=== PATIENT | female | born 1955 | race Caucasian/White ===

== ENCOUNTER 2016-06-05 12:58 | Emergency (ER) | payer OTHER ==
[~2016-06-05] VITALS: Ht 167.6 cm; Wt 92.1 kg
[2016-06-05 12:58] VITALS: Ht 167.6 cm; Wt 92.1 kg
[~2016-06-05 12:58] MED LIST: LEVO100T81; MUPI22OI EA NOSTRIL; PROP80CA; TRIA1TAB10
[2016-06-05] MEDS ORDERED: MORPHINE SULFATE 4 MG SYRINGE IV ONE (13:15)
[2016-06-05] MEDS ORDERED: ONDANSETRON 4mg/2ml INJECTION IV ONE (13:15)
--- NOTE | 2016-06-05 13:15 | ERPDOC ---
Departure Disposition Decision Date: Jun 05, 2016 Disposition Decision Time: 13:52 Disposition: 01 DISCHARGED HOME, SELF-CARE Impression Impression Impression: Primary Impression: RUQ abdominal pain Severity: Moderate Condition: Stable Seen By: Mid-level only Referrals: SANDEE DAN DO (Family) Patient Instructions: Abdominal Pain (ED) Problems/Meds/Labs Reviewed?: Yes Medications reviewed and manag: Yes Additional Instructions: Take the [place] as needed for pain. Use the Zofran as needed for nausea. If you should have any fever, severe pain, or vomiting then return to ER. Otherwise I do want you to follow up in clinic with Dr Dan this week for reevaluation. Your labs today look good. Follow up care ordered?: Yes Mental Status: Alert Scripts Ondansetron (Zofran Odt) 4 Mg Tab.rapdis 4 MG PO Q8HR, #10 TAB 0 Refills Orally disintegrating tablet Prov: JEFF TRISTAN UNEMPLOYMENT SPECIALIST 06/05/16 Hydrocodone/Acetaminophen ([place] 5-325 Tablet) 5-325 Tablet 1 TAB PO Q6H Y for PAIN, #15 TAB 0 Refills Prov: SHANEMACEYJEFF N UNEMPLOYMENT SPECIALIST 06/05/16 HPI - Abdominal Pain General Chief Complaint: Abdominal Pain Stated Complaint: ABD PAIN Time Seen by Provider: 13:04 Source: patient History/Exam Limitations: no limitations HPI - Abdominal Pain Initial Comments She woke up this morning with low abdominal pain, felt like it was a rock in the lower abdomen. She got up and walked around a bit but this did not really help. She tried some Alkaseltzer as well but again did not really do much. Pain then moved more up to her upper abdomen and feels like a pressure about her abdomen. She has had some nausea but no vomiting. Denies any fever/chills or diarrhea. She does not really feel like it has gotten worse but it is not improving at all. Occurred At: home Onset: Gradual Duration: 6-12 hrs (at 0230 in the morning) Quality: sharpness Location: RUQ, epigastric Radiation: no radiation Activities at Onset: none Associated Symptoms: nausea/vomiting (some nausea, no vomiting), DENIES: back pain, chest pain, diaphoresis, fatigue, fever/chills, headache, heartburn, rash , shortness of breath, swelling/mass in abdomen, syncope, weakness Hx of Similar Symptoms: Yes Allergies: Coded Allergies: Sulfa (Sulfonamide Antibiotics) (Verified Allergy, Unknown, SWELLING, 06/05) Past History Patient Surgical History thyroidectomy Breast implants arthroscopy cystocele/rectocele repair hysterectomy Past Medical History Metabolic: hypothyroidism Surgical History Reproductive/: hysterectomy Joint: knee Family History Family History: Negative Vaccines Hx Influenza Vaccination: Yes (2007) Hx Pneumococcal Vaccination: No Social History Smoking Status: Never smoker Substance Use Type: does not use Alcohol Intake: none Review of Systems Constitutional Constitutional: DENIES: chills, dizziness, fatigue, fever, weakness Cardiovascular Cardiac: DENIES: chest pain, dyspnea on exertion, orthopnea Rhythm/Rate: DENIES: irregular beat, palpitations Vascular: DENIES: pedal edema, unilateral swelling Pulmonary Respiratory: DENIES: cough, dyspnea, sputum, tachypnea GI Upper Abdomen: nausea, pain, DENIES: vomiting Lower Abdomen: pain, DENIES: constipation, diarrhea General: DENIES: dysuria, frequency, urgency Integumentary Skin: DENIES: rash Neurological General: DENIES: headache, numbness, tingling, weakness Physical Exam General General Nourishment: well nourished, well developed, appears stated age, no acute distress, adult General Body Habitus: well groomed Vitals and Pain First Documented Vital Signs Date Time Temp Pulse Resp B/P Pulse Ox O2 Delivery O2 Flow Rate FiO2 06/05/16 12:58 97.6 61 18 189/85 96 Room Air Weight: Kilograms: Height (feet): Height (inches): Triage Pain Scale: RN VS reviewed by Provider: Yes Normal Exams: Neck: Full range of motion, without adenopathy, JVD, bruits or thyromegaly Chest/Resp: Clear all ramirez, with good airflow, and symmetry bilaterally CV: Regular rate and rhythm, without murmur or gallop, Pulses 2+ all extremities, capillary refill, <2 seconds all ext., no pedal edema noted Abdomen: Bowel sounds positive, non-distended, no hepatosplenomegaly, masses or bruits noted Lymphatic: No lymphadenopathy, or lymphedema noted Integumentary: No rashes, hives, or bruising noted Neurologic: Patient is alert, and oriented Psychiatric: Patient exhibits, appropriate attention, emotion and affect Abdomen Inspection: NOT FOUND: distention Palpation: FOUND: Macario's sign, involuntary guarding, soft, tender (Moderate TTP in the RUQ), NOT FOUND: rebound, voluntary guarding Auscultation: FOUND: normoactive Differential Diagnoses Considering: Biliary Colic, Bowel Obstruction, Cholecystitis, Constipation, Hepatitis, Hernia, Ulcer, UTI Progress Results/Orders Orders Procedure Category Date Status Time Cbc W/Auto LAB 06/05/16 Complete Diff-Reflex Manual Cmp - Comprehensive LAB 06/05/16 Complete Metabolic Iv Lock (Ed Only) EDM 06/05/16 Transmitted 13:10 Lipase LAB 06/05/16 Complete Ondansetron Inj PHA 06/05/16 Complete (Zofran) 13:15 Morphine Sulfate PHA 06/05/16 Complete (Morphine) 13:15 Ua, Dip Wreflex LAB 06/05/16 Complete [employer] 13:41 Lab Results Laboratory Tests Test 06/05/16 13:24 06/05/16 13:25 White Blood Count 10.7T/MM3 Red Blood Count 4.77M/MM3 Hemoglobin 13.4GM/DL Hematocrit 41.1% Mean Corpuscular Volume 86.2UM3 Mean Corpuscular Hemoglobin 28.1UUG Mean Corpuscular Hemoglobin Concent 32.6GM/DL RDW Standard Deviation 42.6FL Platelet Count 232T/MM3 Mean Platelet Volume 10.6UM3 Immature Granulocyte % (Auto) 0.3% Neutrophils (%) (Auto) 74.6% Lymphocytes (%) (Auto) 17.8% Monocytes (%) (Auto) 5.7% Eosinophils (%) (Auto) 1.3% Basophils (%) (Auto) 0.3% Absolute Immature Granulocyte (auto 0.03T/MM3 Absolute Neutrophils (auto) 8.0T/MM3 Absolute Lymphocytes (auto) 1.9T/MM3 Absolute Monocytes (auto) 0.6T/MM3 Absolute Eosinophils (auto) 0.1T/MM3 Absolute Basophils (auto) 0.0T/MM3 Turbidity < 20 Sodium Level 140MEQ/L Potassium Level 4.2MEQ/L Chloride Level 101MEQ/L Carbon Dioxide Level 25MEQ/L Anion Gap 14MEQ/L Blood Urea Nitrogen 13.0MG/DL Creatinine 0.7MG/DL Glomerular Filtration Rate Calc 85 BUN/Creatinine Ratio 19RATIO Glucose Level 117MG/DL Calculated Osmolality 270MOSM/KG Calcium Level 9.5MG/DL Total Bilirubin 0.60MG/DL Icterus Index < 2 Aspartate Amino Transf (AST/SGOT) 22U/L Alanine Aminotransferase (ALT/SGPT) 39U/L Alkaline Phosphatase 77U/L Total Protein 7.7G/DL Albumin 4.3G/DL Globulin 3.4G/DL Albumin/Globulin Ratio 1.3RATIO Lipase 69U/L Chemistry Specimen Hemolysis < 15 Urine Collection Type Cleancatch-midstream Urine Color Yellow Urine Turbidity Clear Urine pH 7.0 Urine Specific [place] 1.020 Urine Protein Negative Urine Glucose (UA) Negative Urine Ketones Negative Urine Blood Negative Urine Nitrite Negative Urine Bilirubin Negative Urine Urobilinogen 0.2EU/DL Urine Leukocyte Esterase Negative Urinalysis Comment Microscopic not ind. Medications Current ED Medications Ondansetron HCl (Zofran) 4 mg O ONCE IV Last administered on 06/05/16 13:32; Start 06/05/16 at 13:15; Stop 06/05/16 at 13:16; Status DC Morphine Sulfate (Morphine) 4 mg O ONCE IV Last administered on 06/05/16 13: 33; Start 06/05/16 at 13:15; Stop 06/05/16 at 13:16; Status DC Progress Progress CBC, CMP, and lipase today are all in normal range. UA today is clear as well. She is feeling improved after the Morphine given. I do think it is possible that this is her gallbladder so will send her home with Rx for Chamberlain and Zofran. FU with Dr Dan this week for reevaluation. JEFF TRISTAN APRN Jun 05, 2016 13:15
[2016-06-05] MEDS ORDERED: ACET-62 PO (13:17)
[2016-06-05] MEDS ORDERED: TRIA1TAB3 PO (13:17)
[2016-06-05] MEDS ORDERED: MELO-273 PO (13:17)
[2016-06-05] MEDS ORDERED: PROP80CA2 PO (13:17)
[2016-06-05] MEDS ORDERED: LEVO112T4 PO (13:17)
[2016-06-05 13:35] LABS: BASOPHILS % (AUTO) 0.3 % (0-2); EOSINOPHILS # (AUTO) 0.1 T/MM3 (0-0.5); EOSINOPHILS % (AUTO) 1.3 % (0-4); HCT - HEMATOCRIT 41.1 % (36-46); HGB - HEMOGLOBIN 13.4 GM/DL (12-16); IMMATURE GRANULOCYTE # (AUTO) 0.03 T/MM3 (0.00-0.03); IMMATURE GRANULOCYTE % (AUTO) 0.3 % (0.0-0.5); LYMPHOCYTES # (AUTO) 1.9 T/MM3 (1-4.8); LYMPHOCYTES % (AUTO) 17.8 % (23-45); MEAN CORPUSCULAR HGB 28.1 UUG (26-34); MEAN CORPUSCULAR HGB CONC(MCHC 32.6 GM/DL (31-37); MEAN CORPUSCULAR VOLUME 86.2 UM3 (80-100); MEAN PLATELET VOLUME 10.6 UM3 (9.4-12.4); MONOCYTES # (AUTO) 0.6 T/MM3 (0-0.8); MONOCYTES % (AUTO) 5.7 % (0-9.0); NEUTROPHILS % (AUTO) 74.6 % (33-66); RED BLOOD COUNT 4.77 M/MM3 (4.00-5.20); WBC - WHITE BLOOD COUNT 10.7 T/MM3 (4.5-11.0)
[2016-06-05 13:40] LABS: ALBUMIN 4.3 G/DL (3.5-5.0); ALBUMIN/GLOBULIN RATIO 1.3 RATIO (1.1-2.2); ALKALINE PHOSPHATASE 77 U/L (38-126); ALT (SGPT) 39 U/L (9-52); ANION GAP 14 MEQ/L (5-15); AST (SGOT) 22 U/L (14-36); BUN/CREATININE RATIO 19 RATIO (6-26); CALCIUM 9.5 MG/DL (8.4-10.2); CHLORIDE 101 MEQ/L (98-107); CO2 - CARBON DIOXIDE 25 MEQ/L (22-30); CREATININE 0.7 MG/DL (0.7-1.2); GLOMERULAR FILTRATION RATE 85; GLUCOSE 117 MG/DL (65-110); LIPASE 69 U/L (23-300); POTASSIUM 4.2 MEQ/L (3.6-5); SODIUM 140 MEQ/L (134-144); TOTAL PROTEIN 7.7 G/DL (6.3-8.2)
[2016-06-05 13:49] LABS: BLOOD, URINE NEGATIVE (NEGATIVE); COLOR,URINE YELLOW (YELLOW); LEUKOCYTE ESTERASE ,URINE NEGATIVE (NEGATIVE); NITRITE,URINE NEGATIVE (NEGATIVE); UROBILINOGEN,URINE 0.2 EU/DL (NORMAL)
[2016-06-05] MEDS ORDERED: ONDA4TAB7 PO (13:54)
[2016-06-05] MEDS ORDERED: HYDR-4246 PO (13:54)
[2016-06-05 14:07] VITALS: BP 166/76; PULSE 62; RESP 18; TEMP 97.6; O2SAT 96
== END 2016-06-05 14:07 | disposition home or self-care (01) ==
LOC: ED 12:58
DX: R10.11 Right upper quadrant pain (principal); R10.13 Epigastric pain; R11.0 Nausea
CPT/HCPCS: 80053; 81003; 83690; 85025

== ENCOUNTER 2016-06-05 18:36 | Day surgery (SDC) | payer OTHER ==
[~2016-06-05] VITALS: Ht 167.6 cm; Wt 91.9 kg
[~2016-06-05 18:36] MED LIST changes: +ACET-62 PO; +HYDR-4246 PO; +LEVO112T4 PO; +MELO-273 PO; +ONDA4TAB7 PO; +PROP80CA2 PO; +TRIA1TAB3 PO
--- OUTSIDE RECORDS SUMMARY | 2016-06-05 18:40 | XMS REPORT | Continuity of Care Document ---
Author Author [facility] Organization [facility] Address Unknown Phone Unavailable Support Name Relationship Address Phone SANDEE DAN DO Caregiver [address] [place] [address] Unavailable ANG NARVAEZ MD Caregiver [address] [address] Unavailable PATRICIO BECKMAN Next Of Kin [address] [place] [address] CP Insurance Providers Guarantor Montse Beckman Address [address] [place] [address] CP Email [email or web address] [email or web address] [employer] [facility] Policy Number [id number] Subscriber's Name Patricio Beckman Relationship 01 Spouse Group Number [id number] Advance Directives Directive Response Recorded Date/Time Advanced Directives Type None 06/05/16 12:58pm Chief Complaint and Reason for Visit Chief Complaint Abdominal Pain Reason for Visit [id number] Problems Past Problems Medical Problem Onset Date RUQ abdominal pain Unknown Medications Current Home Medications Medication Dose Units Route Directions Days Qty Instructions Start Date Acetaminophen 500 Mg Tablet 1,000 Mg Oral Every 8 Hours as needed for Pain 06/05/16 Hydrocodone/Acetaminophen ([place] 5-325 Tablet) 5-325 Tablet 1 Tab Oral Every 6 Hours as needed for Pain 15 Tablet 06/05/16 Levothyroxine Sodium (Synthroid) 112 Mcg Tablet 112 Mcg Oral Before Breakfast 06/05/16 Meloxicam 7.5 Mg Tablet 7.5 Mg Oral Daily as needed for Pain Ondansetron (Zofran Odt) 4 Mg Tab.rapdis 4 Mg Oral Q8h @ 0100/0900/1700 10 Tablet Orally disintegrating tablet 06/05/16 Propranolol Hcl 80 Mg Cap.sa.24h 80 Mg Oral Daily 06/05/16 Triamterene/Hydrochlorothiazid (Triamterene-Hctz 37.5-25 Mg Tb) 1 Each Tablet 0.5 Tab Oral Daily 06/05/16 Social History Social History Problem Response Recorded Date/Time Onset Date Status Chewing Tobacco Status No 10/30/2012 11:38am Not Applicable Not Applicable Hx Substance Use No 06/05/2016 1:14pm Not Applicable Not Applicable Hx Alcohol Use No 06/05/2016 1:14pm Not Applicable Not Applicable Has the pt used tobacco in the last 12 months No 10/30/2012 11:38am Not Applicable Not Applicable Query Response Start Date Stop Date Smoking Status Never smoker Hospital Discharge Instructions No hospital discharge instructions. Plan of Care Discharge Date 06/05/16 2:07pm Disposition 01 DISCHARGED HOME, SELF-CARE Condition at Discharge Stable Instructions/Education Provided Abdominal Pain (ED) Prescriptions See Medication Section Referrals SANDEE DAN DO Address: [address] [place] [phone] Additional Instructions/Education Take the [place] as needed for pain. Use the Zofran as needed for nausea. If you should have any fever, severe pain, or vomiting then return to ER. Otherwise I do want you to follow up in clinic with Dr Dan this week for reevaluation. Your labs today look good. Care Plan and Goals Physician Care Plan Problem:Abdominal Pain Goal: Follow up with primary care provider Instructions: Take medications and follow care plan as discussed/written Functional Status No functional status results. Allergies, Adverse Reactions, Alerts Allergen Type Severity Reaction Status Last Updated Sulfa (Sulfonamide Antibiotics) Allergy Unknown SWELLING Active 06/05/16 Immunizations Query Response on File Recorded Date/Time Hx Influenza Vaccination Y 200710/30/12 11:38am Hx Pneumococcal Vaccination No 10/30/12 11:38am Hx Influenza Vaccination Y 200710/30/12 11:38am Influenza Vaccine Hx 2016 06/05/16 1:14pm Vital Signs Acute Vital Signs Vital Response Date/Time Temperature (Fahrenheit) 97.6 deg F (96.8 - 99.1) 06/05/2016 2:07pm Temperature (Calculated Celsius) 36.39789 degrees C (36.0 - 37.3) 06/05/2016 2:07pm Pulse Rate (adult) 62 bpm (60 - 100) 06/05/2016 2:07pm Respiratory Rate 18 breaths/min (10 - 20) 06/05/2016 2:07pm O2 Sat by Pulse Oximetry 96 % (90 - 100) 06/05/2016 2:07pm Blood Pressure 166/76 mm Hg 06/05/2016 2:07pm Height (Feet) 5 feet 06/05/2016 12:58pm Height (Inches) 6.00 inches 06/05/2016 12:58pm Weight (Kilograms) 92.100 kg 06/05/2016 12:58pm Body Mass Index (BMI) 32.0 06/05/2016 12:58pm Results Laboratory Results Test Name Result Units Flags Reference Collection Date/Time Result Date/ Time Comments White Blood Count 10.7 T/MM3 4.5-11.0 06/05/2016 1:pm 06/05/2016 1: 35pm Red Blood Count 4.77 M/MM3 4.00-5.20 06/05/2016 1:pm 06/05/2016 1: 35pm Hemoglobin 13.4 GM/DL 12-16 06/05/2016 1:24pm 06/05/2016 1:35pm Hematocrit 41.1 % 36-46 06/05/2016 1:06/05/2016 1:35pm Mean Corpuscular Volume 86.2 UM3 80-100 06/05/2016 1:pm 06/05/2016 1: 35pm Mean Corpuscular Hemoglobin 28.1 UUG 26-34 06/05/2016 1:pm 2016 1:35pm Mean Corpuscular Hemoglobin Concent 32.6 GM/DL 31-37 06/05/2016 1:pm 06/05/2016 1:35pm RDW Standard Deviation 42.6 FL 36.9-50.2 06/05/2016 1:pm 06/05/2016 1 :35pm Platelet Count 232 T/MM3 130-400 06/05/2016 1:pm 06/05/2016 1:35pm Mean Platelet Volume 10.6 UM3 9.4-12.4 06/05/2016 1:pm 06/05/2016 1: 35pm Neutrophils (%) (Auto) 74.6 % H 33-66 06/05/2016 1:pm 06/05/2016 1: 35pm Lymphocytes (%) (Auto) 17.8 % L 23-45 06/05/2016 1:06/05/2016 1: 35pm Monocytes (%) (Auto) 5.7 % 0-9.0 06/05/2016 1:06/05/2016 1:35pm Eosinophils (%) (Auto) 1.3 % 0-4 06/05/2016 1:06/05/2016 1:35pm Basophils (%) (Auto) 0.3 % 0-2 06/05/2016 1:06/05/2016 1:35pm Immature Granulocyte % (Auto) 0.3 % 0.0-0.5 06/05/2016 1:2016 1:35pm Absolute Neutrophils (auto) 8.0 T/MM3 H 1.8-7.7 06/05/2016 1:2016 1:35pm Absolute Lymphocytes (auto) 1.9 T/MM3 1-4.8 06/05/2016 1:2016 1:35pm Absolute Monocytes (auto) 0.6 T/MM3 0-0.8 06/05/2016 1:06/05/2016 1:35pm Absolute Eosinophils (auto) 0.1 T/MM3 0-0.5 06/05/2016 1:2016 1:35pm Absolute Basophils (auto) 0.0 T/MM3 0-0.2 06/05/2016 1:pm 06/05/2016 1:35pm Absolute Immature Granulocyte (auto 0.03 T/MM3 0.00-0.03 06/05/2016 1: 06/05/2016 1:35pm Icterus Index < 2 0-7 06/05/2016 1:06/05/2016 1:40pm Chemistry Specimen Hemolysis < 15 0-25 06/05/2016 1:06/05/2016 1 :40pm 0-25: Specimen Exhibited No Hemolysis. Turbidity < 20 0-20 06/05/2016 1:06/05/2016 1:40pm Sodium Level 140 MEQ/L 134-144 06/05/2016 1:pm 06/05/2016 1:40pm Potassium Level 4.2 MEQ/L 3.6-5 06/05/2016 1:pm 06/05/2016 1:40pm Chloride Level 101 MEQ/L 98-107 06/05/2016 1:pm 06/05/2016 1:40pm Carbon Dioxide Level 25 MEQ/L 22-30 06/05/2016 1:pm 06/05/2016 1: 40pm Anion Gap 14 MEQ/L 5-15 06/05/2016 1:06/05/2016 1:40pm Blood Urea Nitrogen 13.0 MG/DL 7-17 06/05/2016 1:pm 06/05/2016 1: 40pm Creatinine 0.7 MG/DL 0.7-1.2 06/05/2016 1:06/05/2016 1:40pm BUN/Creatinine Ratio 19 RATIO 6-26 06/05/2016 1:06/05/2016 1:40pm Glomerular Filtration Rate Calc 85 06/05/2016 1:pm 06/05/2016 1: 40pm Glucose Level 117 MG/DL H 65-110 06/05/2016 1:pm 06/05/2016 1:40pm Calculated Osmolality 270 MOSM/KG 261-280 06/05/2016 1:06/05/2016 1:40pm Calcium Level 9.5 MG/DL 8.4-10.2 06/05/2016 1:06/05/2016 1:40pm Total Bilirubin 0.60 MG/DL 0.20-1.30 06/05/2016 1:pm 06/05/2016 1: 40pm Alkaline Phosphatase 77 U/L 38-126 06/05/2016 1:06/05/2016 1:40pm Total Protein 7.7 G/DL 6.3-8.2 06/05/2016 1:06/05/2016 1:40pm Albumin 4.3 G/DL 3.5-5.0 06/05/2016 1:06/05/2016 1:40pm Globulin 3.4 G/DL 2.4-3.6 06/05/2016 1:06/05/2016 1:40pm Albumin/Globulin Ratio 1.3 RATIO 1.1-2.2 06/05/2016 1:06/05/2016 1 :40pm Aspartate Amino Transf (AST/SGOT) 22 U/L 14-36 06/05/2016 1:2016 1:40pm Alanine Aminotransferase (ALT/SGPT) 39 U/L 9-52 06/05/2016 1:24pm 06/05 1:40pm Lipase 69 U/L 23-300 06/05/2016 1:24pm 06/05/2016 1:40pm Urine Collection Type CLEANCATCH-MIDSTREAM 06/05/2016 1:25pm 2016 1:49pm Urine Color YELLOW YELLOW 06/05/2016 1:25pm 06/05/2016 1:49pm Urine Turbidity CLEAR CLEAR 06/05/2016 1:pm 06/05/2016 1:49pm Urine Specific [place] 1.020 1.015-1.025 06/05/2016 1:25pm 2016 1:49pm Urine pH 7.0 5.0-8.0 06/05/2016 1:pm 06/05/2016 1:49pm Urine Leukocyte Esterase NEGATIVE NEGATIVE 06/05/2016 1:pm 2016 1:49pm Urine Nitrite NEGATIVE NEGATIVE 06/05/2016 1:pm 06/05/2016 1:49pm Urine Protein NEGATIVE NEGATIVE 06/05/2016 1:25pm 06/05/2016 1:49pm Urine Glucose (UA) NEGATIVE NEGATIVE 06/05/2016 1:25pm 06/05/2016 1: 49pm Urine Ketones NEGATIVE NEGATIVE 06/05/2016 1:pm 06/05/2016 1:49pm Urine Urobilinogen 0.2 EU/DL NORMAL 06/05/2016 1:25pm 06/05/2016 1: 49pm Urine Bilirubin NEGATIVE NEGATIVE 06/05/2016 1:pm 06/05/2016 1: 49pm Urine Blood NEGATIVE NEGATIVE 06/05/2016 1:25pm 06/05/2016 1:49pm Urinalysis Comment MICROSCOPIC NOT IND. 06/05/2016 1:25pm 2016 1:49pm Procedures No known history of procedures. Encounters Encounter Location Arrival/Admit Date Discharge/Depart Date Attending Provider Departed Emergency Room [facility] 06/05/16 12:58pm 06/05/16 2: 07pm ANG NARVAEZ MD Recent Diagnosis
--- NOTE | 2016-06-05 18:55 | NUR ---
PROVIDER DR SABA IN TO SEE PATIENT.
[2016-06-05] MEDS ORDERED: NORMAL SALINE 1,000 ML IV ONE (19:02)
[2016-06-05] MEDS ORDERED: NORMAL SALINE 100 ML ONE (19:13)
[2016-06-05] MEDS ORDERED: SALINE FLUSH 10ml SYRINGE ONE (19:13)
[2016-06-05] MEDS ORDERED: IOHEXOL 300 MG/ML 75ml INJECTION ONE (19:13)
--- NOTE | 2016-06-05 19:13 | ERPDOC ---
Departure Disposition Decision Date: Jun 05, 2016 Disposition Decision Time: 21:43 Disposition: 02 TO [facility] Impression Impression Impression: Primary Impression: Cholecystitis Additional Impressions: Abdominal pain Elevated WBC count Severity: Moderate Condition: Improved Seen By: Physician only Referrals: SANDEE DAN DO (Family) Problems/Meds/Labs Reviewed?: Yes Medications reviewed and manag: Yes Follow up care ordered?: Yes Mental Status: Alert, Oriented HPI - Abdominal Pain General Chief Complaint: Abdominal Pain Stated Complaint: GALLBLADDER ISSUES Time Seen by Provider: 18:40 HPI - Abdominal Pain Initial Comments 60-year-old female presents with right upper quadrant pain. Patient was seen earlier today had normal labs and was sent home with Veteran to use until tomorrow when she could follow up with her primary care provider. She feels like the Veteran makes her feel fuzzy, she does not like the feeling from it. She return to the ED after calling her primary care provider. At this time she feels nauseated, but has not thrown up. Pain is right upper quadrant 6-7 out of 10. She did not eat dinner, had no appetite. The pain started early this morning and has continued intermittently throughout the day. No fever no chills , no diarrhea. She has no previous history of gastritis or gastric ulcer disease. His only had 1 intra-abdominal surgery, which was a laparoscopic hysterectomy. She does have 2 children, both born vaginally. No tobacco use. Patient occasionally has a drink, but it is rare. She's had no dysuria hesitancy or urgency. Allergies: Coded Allergies: Sulfa (Sulfonamide Antibiotics) (Verified Allergy, Unknown, SWELLING, 06/05) Past History Patient Surgical History thyroidectomy Breast implants arthroscopy cystocele/rectocele repair hysterectomy Past Medical History Metabolic: hypothyroidism Surgical History Reproductive/: hysterectomy Joint: knee Vaccines Hx Influenza Vaccination: Yes (2007) Hx Pneumococcal Vaccination: No Social History Smoking Status: Never smoker Substance Use Type: does not use Alcohol Intake: none Record Review Pertinent history updated: Yes Review of Systems Cardiovascular Cardiac: see HPI Pulmonary Respiratory: see HPI GI Upper Abdomen: see HPI Lower Abdomen: see HPI General: see HPI All other Systems All Other Systems: Reviewed and Negative Physical Exam General General Nourishment: well nourished, well developed, appears stated age, no acute distress Distress Description Patient states her pain was severe, on entering the room she is lying on her back, with her feet stretching off the bed and touching the floor, arching her back. She said this relieves the discomfort. She did not show any signs of acute illness or pain during the exam or evaluation. Vitals and Pain First Documented Vital Signs Date Time Temp Pulse Resp B/P Pulse Ox O2 Delivery O2 Flow Rate FiO2 06/05/16 18:43 97.7 63 18 189/84 97 Room Air Weight: Kilograms: 91.800 Height (feet): 5 Height (inches): 6.00 Triage Pain Scale: Normal Exams: Head: Normocephalic w/o trauma Chest/Resp: Clear all ramirez, with good airflow, and symmetry bilaterally CV: Regular rate and rhythm, without murmur or gallop, Pulses 2+ all extremities, capillary refill, <2 seconds all ext., no pedal edema noted Abdomen: Bowel sounds positive, non-distended, no hepatosplenomegaly, masses or bruits noted Neurologic: Patient is alert, and oriented, cranial nerves, motor/sensory/ cerebellar, exams w/o gross deficits, to observation Psychiatric: Patient exhibits, appropriate attention, emotion and affect Abdomen (brief) Comments Abdomen tender right upper quadrant and mild tenderness midepigastric. Differential Diagnoses Considering: Other (gastritis, gastric ulcer, cholecystitis, UTI, pyelonephritis, constipation, diverticulitis, [place]) Progress Results/Orders Orders Procedure Category Date Status Time Cbc W/Auto LAB 06/05/16 Complete Diff-Reflex Manual 19:02 Lipase LAB 06/05/16 Complete 19:02 Ua, Dip Wreflex LAB 06/05/16 Complete Microsc & Electrical Logging Operator 19:02 EKG EKG 06/05/16 Taken 19:02 Ct Abd/Pelvis CT 06/05/16 Taken W/Contrast Only 19:02 Normal Saline (Normal PHA 06/05/16 Complete Saline Iv) 19:02 Hydromorphone PHA 06/05/16 Complete (Dilaudid) 19:15 Ondansetron Inj PHA 06/05/16 Complete (Zofran) 19:15 Iohexol (Omnipaque) PHA 06/05/16 Complete 19:13 Normal Saline (Ns) PHA 06/05/16 Complete 19:13 Saline Flush (Iv PHA 06/05/16 Complete Flush) 19:13 Place In Facility: ED ADM 06/05/16 Transmitted 19:53 Normal Saline (Normal PHA 06/05/16 Complete Saline Iv) 19:53 Ondansetron Inj PHA 06/05/16 Complete (Zofran) 20:00 Prn Orders (Adult) PHA 06/05/16 Complete (May Use Prn Orders) 20:00 Troponin I W LAB 06/06/16 Verified Hemolysis Index 04:00 Us Abdomen Limited US 06/05/16 Taken Cmp - Comprehensive LAB 06/05/16 Complete Metabolic 19:15 Lab Results Laboratory Tests Test 06/05/16 19:15 06/05/16 19:42 White Blood Count 14.1T/MM3 Red Blood Count 4.73M/MM3 Hemoglobin 13.1GM/DL Hematocrit 40.3% Mean Corpuscular Volume 85.2UM3 Mean Corpuscular Hemoglobin 27.7UUG Mean Corpuscular Hemoglobin Concent 32.5GM/DL RDW Standard Deviation 41.9FL Platelet Count 231T/MM3 Mean Platelet Volume 10.3UM3 Immature Granulocyte % (Auto) 0.3% Neutrophils (%) (Auto) 79.2% Lymphocytes (%) (Auto) 14.5% Monocytes (%) (Auto) 5.0% Eosinophils (%) (Auto) 0.9% Basophils (%) (Auto) 0.1% Absolute Immature Granulocyte (auto 0.04T/MM3 Absolute Neutrophils (auto) 11.2T/MM3 Absolute Lymphocytes (auto) 2.1T/MM3 Absolute Monocytes (auto) 0.7T/MM3 Absolute Eosinophils (auto) 0.1T/MM3 Absolute Basophils (auto) 0.0T/MM3 Turbidity < 20 Sodium Level 138MEQ/L Potassium Level 4.2MEQ/L Chloride Level 100MEQ/L Carbon Dioxide Level 24MEQ/L Anion Gap 14MEQ/L Blood Urea Nitrogen 12.0MG/DL Creatinine 0.6MG/DL Glomerular Filtration Rate Calc 102 BUN/Creatinine Ratio 20RATIO Glucose Level 109MG/DL Calculated Osmolality 267MOSM/KG Calcium Level 9.5MG/DL Total Bilirubin 0.70MG/DL Icterus Index < 2 Aspartate Amino Transf (AST/SGOT) 31U/L Alanine Aminotransferase (ALT/SGPT) 39U/L Alkaline Phosphatase 79U/L Total Protein 7.7G/DL Albumin 4.3G/DL Globulin 3.4G/DL Albumin/Globulin Ratio 1.3RATIO Lipase 40U/L Chemistry Specimen Hemolysis 29 Urine Collection Type Cleancatch-midstream Urine Color Yellow Urine Turbidity Clear Urine pH 6.5 Urine Specific [place] <=1.005 Urine Protein Negative Urine Glucose (UA) Negative Urine Ketones Trace Urine Blood Negative Urine Nitrite Negative Urine Bilirubin Negative Urine Urobilinogen 0.2EU/DL Urine Leukocyte Esterase Negative Urinalysis Comment Microscopic not ind. Medications Current ED Medications Sodium Chloride (Normal Saline IV) 1,000 ml @ 1,000 mls/hr Q1H ONCE IV Last administered on 06/05/16 19:20; Start 06/05/16 at 19:02; Stop 06/05/16 at 20:06 ; Status DC Hydromorphone HCl (Dilaudid) 0.5 mg O ONCE IV Last administered on 06/05/16 19:21; Start 06/05/16 at 19:15; Stop 06/05/16 at 20:06; Status DC Ondansetron HCl (Zofran) 4 mg O ONCE IV Last administered on 06/05/16 19:20; Start 06/05/16 at 19:15; Stop 06/05/16 at 20:06; Status DC Iohexol 1 bottle 1 bottle STK-MED ONCE .ROUTE ; Start 06/05/16 at 19:13; Stop at 19:14; Status DC Sodium Chloride (NS) 100 ml @ As Directed STK-MED ONCE .ROUTE ; Start 06/05/16 at 19:13; Stop 06/05/16 at 20:06; Status DC Sodium Chloride 10 ml 10 ml STK-MED ONCE .ROUTE ; Start 06/05/16 at 19:13; Stop 06/05/16 at 20:06; Status DC Sodium Chloride (Normal Saline IV) 1,000 ml @ 100 mls/hr Q10H IV ; Start at 19:53; Stop 06/05/16 at 20:06; Status DC Ondansetron HCl (Zofran) 4 mg Q6H PRN IV NAUSEA &/OR VOMITING; Start 06/05/16 at 20:00; Stop 06/05/16 at 20:06; Status DC Miscellaneous Medication (May use PRN orders) 1 PRN PRN MC ; Start 06/05/16 at 20:00; Stop 06/05/16 at 20:06; Status DC Progress Progress White count returned elevated at 14.1, this is definitely increased from this morning when white count was normal. Patient now has a left shift as well. She is afebrile. Pain is been controlled with IV Dilaudid. CT of abdomen showed inflammation, but was read as very nonspecific by radiology. Ultrasound of abdomen was performed showing gallstones and positive sonographic Macario sign. I spoke with Dr. Umanzor, who agreed to accept the patient. Patient will be admitted on Invanz, given IV fluid, IV Dilaudid as needed for pain, IV Zofran as needed for nausea. Nothing by mouth after midnight. He will evaluate her in the morning and take her to surgery if appropriate. Patient is aware of this plan and approves of it. TYE SABA MD Jun 05, 2016 19:13
[2016-06-05] MEDS ORDERED: HYDROMORPHONE 2mg/ml INJECTION IV ONE ×2 (19:15→21:45)
[2016-06-05] MEDS ORDERED: ONDANSETRON 4mg/2ml INJECTION IV ONE (19:15)
--- NOTE | 2016-06-05 19:26 | NUR ---
TO CT PER CART.
[2016-06-05 19:27] LABS: BASOPHILS % (AUTO) 0.1 % (0-2); EOSINOPHILS # (AUTO) 0.1 T/MM3 (0-0.5); EOSINOPHILS % (AUTO) 0.9 % (0-4); HCT - HEMATOCRIT 40.3 % (36-46); HGB - HEMOGLOBIN 13.1 GM/DL (12-16); IMMATURE GRANULOCYTE # (AUTO) 0.04 T/MM3 (0.00-0.03); IMMATURE GRANULOCYTE % (AUTO) 0.3 % (0.0-0.5); LYMPHOCYTES # (AUTO) 2.1 T/MM3 (1-4.8); LYMPHOCYTES % (AUTO) 14.5 % (23-45); MEAN CORPUSCULAR HGB 27.7 UUG (26-34); MEAN CORPUSCULAR HGB CONC(MCHC 32.5 GM/DL (31-37); MEAN CORPUSCULAR VOLUME 85.2 UM3 (80-100); MEAN PLATELET VOLUME 10.3 UM3 (9.4-12.4); MONOCYTES # (AUTO) 0.7 T/MM3 (0-0.8); NEUTROPHILS #(AUTO)-ABSOLUTE 11.2 T/MM3 (1.8-7.7); NEUTROPHILS % (AUTO) 79.2 % (33-66); RED BLOOD COUNT 4.73 M/MM3 (4.00-5.20); WBC - WHITE BLOOD COUNT 14.1 T/MM3 (4.5-11.0)
--- NOTE | 2016-06-05 19:33 | NUR ---
BACK FROM CT
[2016-06-05 19:36] LABS: ANION GAP 14 MEQ/L (5-15); BUN/CREATININE RATIO 20 RATIO (6-26); CALCIUM 9.5 MG/DL (8.4-10.2); CHLORIDE 100 MEQ/L (98-107); CO2 - CARBON DIOXIDE 24 MEQ/L (22-30); CREATININE 0.6 MG/DL (0.7-1.2); GLOMERULAR FILTRATION RATE 102; GLUCOSE 109 MG/DL (65-110); LIPASE 40 U/L (23-300); POTASSIUM 4.2 MEQ/L (3.6-5); SODIUM 138 MEQ/L (134-144)
[2016-06-05 19:49] LABS: BLOOD, URINE NEGATIVE (NEGATIVE); COLOR,URINE YELLOW (YELLOW); LEUKOCYTE ESTERASE ,URINE NEGATIVE (NEGATIVE); NITRITE,URINE NEGATIVE (NEGATIVE); UROBILINOGEN,URINE 0.2 EU/DL (NORMAL)
[2016-06-05] MEDS ORDERED: NORMAL SALINE 1,000 ML IV SCH (19:53)
[2016-06-05] MEDS ORDERED: PRN ORDERS MC ×2 (20:00→21:45)
[2016-06-05] MEDS ORDERED: ONDANSETRON 4mg/2ml INJECTION IV PRN ×2 (20:00→21:45)
--- NOTE | 2016-06-05 20:13 | NUR ---
PROVIDER DR SABA IN TO SEE PATIENT.
[2016-06-05 20:30] LABS: ALBUMIN 4.3 G/DL (3.5-5.0); ALBUMIN/GLOBULIN RATIO 1.3 RATIO (1.1-2.2); ALKALINE PHOSPHATASE 79 U/L (38-126); ALT (SGPT) 39 U/L (9-52); AST (SGOT) 31 U/L (14-36); TOTAL PROTEIN 7.7 G/DL (6.3-8.2)
--- NOTE | 2016-06-05 20:46 | NUR ---
SONO US TECH IN ROOM AT THIS TIME.
--- NOTE | 2016-06-05 21:25 | NUR ---
PROVIDER DR SABA IN TO SEE PATIENT.
[2016-06-05] MEDS ORDERED: HYDROMORPHONE 2mg/ml INJECTION IV PRN (21:45)
[2016-06-05] MEDS: NORMAL SALINE 1,000 ML IV SCH (21:52)
[2016-06-05] MEDS ORDERED: ERTAPENEM 1 G in NORMAL SALINE 100 ML IV ONE (22:00)
--- NOTE | 2016-06-05 22:04 | NUR ---
REPORT GIVEN TO ANASTACIA DIMAS. NO QUESTIONS NOTED.
[2016-06-05 22:15] VITALS: BP 139/69; PULSE 65; PULSE 66; RESP 18; TEMP 96.8; O2SAT 96
--- NOTE | 2016-06-05 22:15 | NUR ---
ADMISSION PATIENT ADMITTED FROM ER TO 134 AT THIS TIME. PATIENT IS ALERT AND ORIENTED X3.ABLE TO ANSWER ADMISSION QUESTIONS.SHE IS TRANSFERRED FROM CART TO BED BY HERSELF. DENIES PAIN AT THIS TIME. CONTINUE TO MONITOR.
[2016-06-05 22:27] VITALS: Ht 167.6 cm; Wt 91.9 kg
[2016-06-06] VITALS (30 sets, daily range): BP systolic 116–171; BP diastolic 52–73; PULSE 60–109; RESP 14–21; TEMP 95.5–98.4; O2SAT 90–99
--- NOTE | 2016-06-06 04:39 | NUR ---
Chart Check 24 hour chart check completed
[2016-06-06 04:55] LABS: BASOPHILS % (AUTO) 0.2 % (0-2); EOSINOPHILS # (AUTO) 0.2 T/MM3 (0-0.5); EOSINOPHILS % (AUTO) 1.8 % (0-4); HCT - HEMATOCRIT 36.4 % (36-46); HGB - HEMOGLOBIN 11.9 GM/DL (12-16); IMMATURE GRANULOCYTE # (AUTO) 0.02 T/MM3 (0.00-0.03); IMMATURE GRANULOCYTE % (AUTO) 0.2 % (0.0-0.5); LYMPHOCYTES # (AUTO) 2.1 T/MM3 (1-4.8); LYMPHOCYTES % (AUTO) 19.4 % (23-45); MEAN CORPUSCULAR HGB 28.5 UUG (26-34); MEAN CORPUSCULAR HGB CONC(MCHC 32.7 GM/DL (31-37); MEAN CORPUSCULAR VOLUME 87.3 UM3 (80-100); MEAN PLATELET VOLUME 10.2 UM3 (9.4-12.4); MONOCYTES # (AUTO) 0.9 T/MM3 (0-0.8); MONOCYTES % (AUTO) 7.9 % (0-9.0); NEUTROPHILS #(AUTO)-ABSOLUTE 7.7 T/MM3 (1.8-7.7); NEUTROPHILS % (AUTO) 70.5 % (33-66); RED BLOOD COUNT 4.17 M/MM3 (4.00-5.20); WBC - WHITE BLOOD COUNT 10.9 T/MM3 (4.5-11.0)
[2016-06-06 05:04] LABS: ALBUMIN 3.6 G/DL (3.5-5.0); ALBUMIN/GLOBULIN RATIO 1.2 RATIO (1.1-2.2); ALKALINE PHOSPHATASE 62 U/L (38-126); ALT (SGPT) 41 U/L (9-52); ANION GAP 10 MEQ/L (5-15); AST (SGOT) 17 U/L (14-36); BUN/CREATININE RATIO 13 RATIO (6-26); CALCIUM 8.5 MG/DL (8.4-10.2); CHLORIDE 103 MEQ/L (98-107); CO2 - CARBON DIOXIDE 27 MEQ/L (22-30); CREATININE 0.7 MG/DL (0.7-1.2); GLOMERULAR FILTRATION RATE 85; GLUCOSE 110 MG/DL (65-110); POTASSIUM 3.9 MEQ/L (3.6-5); SODIUM 140 MEQ/L (134-144); TOTAL PROTEIN 6.5 G/DL (6.3-8.2)
--- NOTE | 2016-06-06 06:11 | NUR ---
STATUS PATIENT ALTER AND ORIENTEDX3. PATIENT HAD VOMITING 10 ML GREENISH EMESISX1 LAST NIGHT. NO BM DURING AUTOMATION TESTER.ON ROOM AIR.PATIENT DENIES PAIN ,CHEST PAIN ,SOA OR N/V. AT THIS TIME. VSS STABLE. PATIENT AMBULATED TO BATHROOM WITH STANDBY ASSIST. ADEQUATE URINARY OUTPUT. PATIENT IS RESTING IN BED QUIETLY AT THIS TIME .NPO. CALL LIGHT WITH REACH. SCDS ON. CONTINUE TO MONITOR.
--- NOTE | 2016-06-06 08:38 | DI ---
Indication: ITS.REASON: inflammation around the gallbladder and pancreas on CT PROCEDURE: US ABDOMEN LIMITED: Encounter: Subsequent Comparison: Prior abdominal CT of the same day Technique: Grayscale and color Doppler sonographic imaging of the right upper quadrant of the abdomen was performed. Findings: Hepatic parenchyma is homogeneous without evidence for focal mass. Stone seen within the gallbladder neck. The common bile duct is mildly prominent at 6.7 mm. No gallbladder wall thickening or pericholecystic fluid appreciated. Patient did demonstrate a positive sonographic Macario's sign. No intrahepatic biliary ductal dilatation appreciated. Visualized portions of the head and body of the pancreas are unremarkable. The right kidney is present without collecting system dilatation. The right kidney measures 9.2 cm in length. Impression: Cholelithiasis with minimal prominence of the common bile duct and a positive sonographic Macario's sign raising consideration for acute cholecystitis. The above report concurs with the preliminary report provided by [facility] at 9:22 PM. .
--- NOTE | 2016-06-06 08:42 | HPPDOC ---
HPI - Adult Date DATE: 06/06/16 TIME: 08:36 General History of Present Illness Per Dr. Umanzor Past Medical History Past Medical History Patient's Medical History: (1) HTN (hypertension) (2) Other postablative hypothyroidism (3) Arthritis Surgical History Patient's Surgical History: radioactive ablation of thyroid 2007 Breast implants 1979 and replacement with saline implants 1997 arthroscopy left shoulder - rotator cuff impingement 10-31-2012 - [place] cystocele/rectocele repair Roboitic SANDY-BSO 08-15-2012 colonoscopy Lasik 1998 Current Medications Home Meds Active Scripts Ondansetron (Zofran Odt) 4 Mg Tab.rapdis, 4 MG PO Q8HR, #10 TAB 0 Refills Orally disintegrating tablet Prov:JEFF TRISTAN OUTPATIENT PHYSICAL THERAPIST ASSISTANT 06/05/16 Hydrocodone/Acetaminophen ([place] 5-325 Tablet) 5-325 Tablet, 1 TAB PO Q6H Y for PAIN, #15 TAB 0 Refills Prov:JEFF TRISTAN OUTPATIENT PHYSICAL THERAPIST ASSISTANT 06/05/16 Reported Medications Acetaminophen (Acetaminophen) 500 Mg Tablet, 1000 MG PO Q8H Y for PAIN 06/05/16 Meloxicam (Meloxicam) 7.5 Mg Tablet, 7.5 MG PO DAILY Y for PAIN 06/05/16 Triamterene/Hydrochlorothiazid (Triamterene-Hctz 37.5-25 mg Tb) 1 Each Tablet, 0.5 TAB PO DAILY 06/05/16 Levothyroxine Sodium (Synthroid) 112 Mcg Tablet, 112 MCG PO ACB 06/05/16 Propranolol HCl (Propranolol HCl) 80 Mg Cap.sa.24h, 80 MG PO DAILY 06/05/16 Allergies: Coded Allergies: Sulfa (Sulfonamide Antibiotics) (Verified Allergy, Unknown, SWELLING, 06/05) Family History Family History: father - age 46 Hodgkin's lymphoma mother - HTN sister - HTN, DM Social History Smoking Status: Never smoker Substance Use Type: does not use Alcohol Intake: none Household Members: spouse Current Occupational Status: employed Current Occupation: senior gl accountant Advance Directives: No DPOA for Healthcare Only GS Review of Systems Gastrointestional REPORTS other (see HPI) Musculoskeletal REPORTS joint pain Endocrine REPORTS thyroid problems 10-point Review of Systems otherwise negative except HPI GS Physical Exam Vital Signs Date Time Temp Pulse Resp B/P Pulse Ox O2 Delivery O2 Flow Rate FiO2 06/06/16 07:18 64 16 06/06/16 07:17 97.3 135/67 96 Room Air Height (Feet): 5 Height (Inches): 6.00 Weight (Kilograms): 92.800 BMI 33.4 Laboratory Laboratory Tests 06/05/16 19:15 06/06/16 04:26 Laboratory Tests 06/05/16 19:15 06/06/16 04:26 GS Assessment & Plan Code Status Full Code Hospital Course Summary Disclaimer The visit summary below is not to be considered part of the above Progress Note. LAUREANO SHEPPARD OUTPATIENT PHYSICAL THERAPIST ASSISTANT June 06, 2016 08:40
--- NOTE | 2016-06-06 08:43 | NUR ---
CM CM IN TO VISIT WITH PT. SHE IS ALERT AND ORIENTED. SHE PLANS TO DC HOME. SHE DENIES DC NEEDS. LACE SCORE IS 3. PT IS GIVEN CM CONTACT INFORMATION. Addendum: 06/06/16 at 0843 by CARMEN BABIN RN Amended: Links added.
--- NOTE | 2016-06-06 08:44 | DI ---
Indication: ITS.REASON: right upper quadrant pain Procedure: CT ABD/PELVIS W/CONTRAST ONLY: Encounter: Initial Comparison: Subsequent right upper quadrant ultrasound of the same day Technique: Axial CT images were performed through the abdomen and pelvis after the administration of intravenous contrast. Coronal and sagittal reformatted images were also obtained. Automated Exposure Control and Iterative Reconstruction dose reducing techniques were utilized. Contrast: Omnipaque 300 100 mL Findings: Lower lungs: Basilar dependent atelectasis. The visualized heart is normal in size without pericardial effusion. Partially visualized bilateral breast implants. Abdomen: The liver demonstrates a few cysts but otherwise enhances homogeneously without focal mass. The gallbladder is distended and contains a stone near the neck. No biliary ductal dilatation. Mild fatty infiltration seen surrounding the gallbladder within the right upper quadrant. The pancreas enhances homogeneously. The spleen is normal in size and enhancement. The adrenal glands are within normal limits. The kidneys enhance symmetrically and appear normal. The ureters are normal in course and caliber. The abdominal aorta is normal in course and caliber with scattered atherosclerotic calcifications noted. The mesenteric arterial and venous structures appear patent. The stomach is partially distended and appears normal. Small bowel loops are normal in caliber without evidence of obstruction. The colon appears normal. The appendix is not seen with certainty however no secondary signs of acute appendicitis are identified. No intra-abdominal free air, free fluid, focal fluid collections, or lymphadenopathy. Pelvis: The bladder is distended and appears normal. The uterus is surgically absent. No adnexal masses seen. No pelvic free fluid or lymphadenopathy. Osseous structures and soft tissues: No acute osseous abnormality. Mild degenerative spondylosis of the visualized spine. Impression: Gallstone noted at the gallbladder neck with mild inflammatory stranding within the fat surrounding the gallbladder raising consideration for acute cholecystitis. The above report concurs with the preliminary report provided by [facility] at 7:58 PM. .
[2016-06-06] MEDS: NORMAL SALINE 1,000 ML IV SCH ×3 (09:06→19:02)
[2016-06-06] MEDS: MUPIROCIN 2% EA NOSTRIL SCH ×2 (09:56→21:13)
[2016-06-06] MEDS: PROPRANOLOL LA 80 MG CAPSULE PO SCH (09:56)
[2016-06-06] MEDS: LEVOTHYROXINE 112 MCG TABLET PO SCH (09:56)
[2016-06-06] MEDS ORDERED: BUPIVACAINE 0.25%/EPI 1:200,000 30ml SDV ONE (10:55)
[2016-06-06] MEDS ORDERED: SALINE FLUSH 10ml SYRINGE ONE (10:56)
--- NOTE | 2016-06-06 11:41 | HPF ---
FINDINGS Mrs. Sosa is a 60-year-old female whom I was asked to see late last evening through the emergency room as a result of her history and physical findings of right upper quadrant abdominal pain in conjunction with radiographic evidence suggestive of acute cholecystitis. Upon questioning the patient she states that on Monday, two days ago, she felt normal and was without any element of pain. On Monday night/early Monday morning she began to develop severe pain within her midabdomen. The patient states that the pain then began to go "up" in her upper abdomen. Patient states that she then presented to the emergency room for further evaluation. She described the pain as constant in nature. She did have a component of some nausea in association with the pain but did not experience vomiting. Patient states she was evaluated in emergency room and was subsequently sent home. Following her discharge, she continued to have severe pain. As a result of this persistent abdominal pain she re-presented to the emergency room and a gallbladder ultrasound was obtained that did reveal evidence for a stone lodged within the neck of the gallbladder indicative of acute cholecystitis. The patient this morning states she continues to have pain within her right upper quadrant that radiates in towards her back. She is more comfortable, however, after receiving some intravenous narcotics. PAST MEDICAL HISTORY Will be performed by my nurse practitioner, Jerrod Ramírez. PAST SURGICAL HISTORY Will be performed by my nurse practitioner, Jerrod Ramírez. MEDICATIONS Will be performed by my nurse practitioner, Jerrod Ramírez. ALLERGIES Will be performed by my nurse practitioner, Jerrod Ramírez. SOCIAL HISTORY Will be performed by my nurse practitioner, Jerrod Ramírez. FAMILY HISTORY Will be performed by my nurse practitioner, Jerrod Ramírez. REVIEW OF SYSTEMS Will be performed by my nurse practitioner, Jerrod Ramírez. PHYSICAL EXAMINATION Mrs. Sosa is a 60-year-old female who earlier this morning when seen did not appear to be any acute distress. VITALS: Afebrile. Normotensive. Last recorded vitals include temperature 97.3, pulse 64, respirations 16, blood pressure 135/67, SaO2 96% room air. HEENT: Normocephalic. Pupils are equal, round and reactive to light and accommodation. NECK: Supple without lymphadenopathy. CHEST: Clear to auscultation bilaterally. HEART: Regular rate and rhythm. Normal S1 and S2 without gallops, murmurs or clicks. ABDOMEN: Palpation of the abdomen did indeed reveal localized tenderness to her right upper quadrant. The patient did have a component of voluntary and involuntary guarding with palpation in the right upper quadrant. Remainder of abdomen was soft, nontender. There was evidence for hepatomegaly or other abnormal masses. EXTREMITIES: Without clubbing, cyanosis, or edema. NEURO: Cranial nerves II-XII grossly intact. Patient is without focal motor or sensory deficits. LABORATORY/RADIOGRAPH EVALUATION The patient did have a gallbladder ultrasound that, as stated above, did reveal a stone within the neck of the gallbladder. There was some slight prominence of the common bile duct. The patient was found have a positive sonographic Macario sign raising consideration for acute cholecystitis. A CT scan was obtained and there was a gallstone noted within the neck of the gallbladder with some mild inflammatory stranding consistent with acute cholecystitis. From a laboratory standpoint, the patient had a CBC last evening and her white count was elevated at 14.1. Repeat CBC this morning revealed her white count to have decreased to 10.9. Hemoglobin was 11.9 this morning. CMP was obtained last evening as well as today. Her liver function tests are within normal limits. Lipase was within normal limits. ASSESSMENT 60-year-old female with acute cholecystitis/symptomatic cholelithiasis. PLAN Robotic-assisted laparoscopic cholecystectomy. I informed the patient it would be my recommendation as a result of the above circumstances that we would proceed with surgical intervention/cholecystectomy. I did discuss in detail with the patient what a robotic-assisted laparoscopic cholecystectomy entailed and its associated risk which included but was not inclusive of bleeding, infection, potential conversion to an open procedure, potential injury to adjacent structures, especially the common bile duct. The patient understood and wished to proceed as stated above. Additionally, it should be noted that upon her admission last evening I had requested the patient begin broad spectrum antibiotics. The patient has received Invanz.. TRAY
--- NOTE | 2016-06-06 14:40 | NUR ---
Off unit Pt transferred to OR at this time via wheelchair by Elizabeth Thomas RN. VS stable on RA. Consent signed prior to transfer.
--- NOTE | 2016-06-06 15:05 | ANESPREOP ---
Anesthesia Record Date and Time DATE: 06/06/16 TIME: 15:01 Pre-Op Diagnosis cholecystitis Proposed Surgical Procedure Robotic Cecilia Allergies: Coded Allergies: Sulfa (Sulfonamide Antibiotics) (Verified Allergy, Unknown, SWELLING, 06/05) Ht/Wt/BMI Height: 5 ' 6.00 " Weight: 92.800 kg BMI: 33.4 kg/m2 Vital Signs Date Time Temp Pulse Resp B/P Pulse Ox O2 Delivery O2 Flow Rate FiO2 06/06/16 14:55 98.4 65 17 164/69 96 Room Air Medications Inpatient Medications Current Medications Medications (Trade) Dose Ordered Sig/Tye Start Time Stop Time Status Last Admin Dose Admin Sodium Chloride (Normal Saline IV) 1,000 ml @ 100 mls/hr Q10H 06/05/16 19:53 06/05/16 20:06 DC Ondansetron HCl (Zofran) 4 mg Q6H PRN 06/05/16 20:00 06/05/16 20:06 DC Miscellaneous Medication 1 1 PRN PRN 06/05/16 20:00 06/05/16 20:06 DC Sodium Chloride (Normal Saline IV) 1,000 ml @ 100 mls/hr Q10H 06/05/16 21:44 06/06/16 09:06 100 MLS/HR Hydromorphone HCl (Dilaudid) 0.5 mg Q2H PRN 06/05/16 21:45 06/06/16 11:14 0.5 MG Ondansetron HCl (Zofran) 4 mg Q6H PRN 06/05/16 21:45 06/06/16 09:57 4 MG Miscellaneous Medication (May use PRN orders) 1 PRN PRN 06/05/16 21:45 Levothyroxine Sodium (Synthroid) 112 mcg ACB 06/06/16 06:30 06/06/16 09:56 112 MCG Propranolol HCl (Inderal La) 80 mg DAILY 06/06/16 09:00 06/06/16 09:56 80 MG Mupirocin (Bactroban 2% Ointment) 1 applic BID 06/06/16 09:00 06/06/16 09:56 1 APPLIC Acetaminophen (Acetaminophen) 500 Mg Tablet, 1,000 MG PO Q8H PRN for PAIN, ( Reported) Last Taken: on 06/05/16 1130 Hydrocodone/Acetaminophen (Kincaid 5-325 Tablet) 5-325 Tablet, 1 TAB PO Q6H PRN for PAIN Last Taken: on Unknown Date & Time Levothyroxine Sodium (Synthroid) 112 Mcg Tablet, 112 MCG PO ACB, (Reported) Last Taken: on 06/05/16629 Meloxicam (Meloxicam) 7.5 Mg Tablet, 7.5 MG PO DAILY PRN for PAIN, (Reported) Last Taken: on 06/03/16 Ondansetron (Zofran Odt) 4 Mg Tab.rapdis, 4 MG PO Q8HR Orally disintegrating tablet Last Taken: on Unknown Date & Time Propranolol HCl (Propranolol HCl) 80 Mg Cap.sa.24h, 80 MG PO DAILY, (Reported) Last Taken: on 06/05/16629 Triamterene/Hydrochlorothiazid (Triamterene- Hctz 37.5-25 mg Tb) 1 Each Tablet, 0.5 TAB PO DAILY, (Reported) Last Taken: on 06/05/16629 Currently on Beta David: Yes Beta David Last Taken: 955 Medical/Surgical History Anesthesia PMH: Reports: *Hypertension, Anesthesia Reactions (N/V SEVERAL YRS AGO,COULDN'T KEEP EYES OPEN AFTER HYST), Arthritis (OA), Thyroid Disease, Denies : *Angina, *Diabetes, *Dyspnea, *ND, Asthma, Blood Transfusion Reac, CHF, COPD, CVA/Stroke/TIA, Cancer, Clotting Problems, Deep Vein Thrombosis, Glaucoma, Hepatitis, Hiatal Hernia, Malignant Hyperthermia, Pneumonia, Reflux, Renal Disease, Seizures, Tuberculosis Smoking Status: Never smoker Has pt. smoked today?: No Use Chewing Tobacco?: No Second Hand Exposure: No Substance Use Type: does not use Alcohol Intake: none Past Surgical History Orthopedic Surgeries: Yes - Rotator cuff repair- right and left shoulder in 2013 Abdominal Surgeries: No Genitourinary Surgeries: No Cardiac Surgeries: No Endocrine Surgeries: Yes - thyroidectomy Reproductive Surgeries: Yes - laparoscopic hysterectomy 2013,breast implants Neurological Surgeries: No Ear Surgeries: No Nose Surgeries: No Throat Surgeries: No Other Surgeries: No Anesthesia Adverse Reactions: FOUND nausea and vomiting Family Hx of Anesthesia Advers: none Hx of Motion Sickness: No Pertinent Findings Laboratory Tests 06/06/16 04:26 EKG Rhythm: Sinus Rhythm Physical Exam Respiratory: Bilat breath sounds equal, Lungs clear Cardiovascular: FOUND Regular rate, rhythm, FOUND No murmur Airway Assessment Mallampati Score: II TMD: 3 Fingerbreadths Neck Extension: Good Overall Assessment: No Airway Concerns ASA: 2 Plan Anesthesia Plan: GETA Discussion Discussed risks/options/alternatives of anesthesia and questions answered. Patient consents. Nursing pain assessment noted. Present: Spouse Attestation Statement Prior to the delivery of any anesthetic medication, I examined the patient, developed the plan, obtained the patient's consent and discussed the risk and benefits of the procedure with the patient/guardian. MERCEDES ODEN CRNA June 06, 2016 15:05
[2016-06-06] MEDS ORDERED: MIDAZOLAM 2mg/2ml INJECTION IV ONE (15:15)
[2016-06-06] MEDS ORDERED: SCOPOLAMINE 1.5 MG PATCH TD ONE (15:15)
[2016-06-06] MEDS ORDERED: FENTANYL 250mcg/5ml INJECTION ONE (15:22)
[2016-06-06] MEDS ORDERED: PROPOFOL 200mg 20 ML IV ONE (15:23)
[2016-06-06] MEDS ORDERED: ROCURONIUM 50mg/5ml INJECTION IV ONE (15:23)
[2016-06-06] MEDS ORDERED: LACRI-LUBE EYE OINT 3.5 G TUBE ONE (15:30)
[2016-06-06] MEDS ORDERED: ONDANSETRON 4mg/2ml INJECTION ONE (15:40)
[2016-06-06] MEDS ORDERED: DEXAMETHASONE 4mg/ml - 1ml INJECTION ONE (15:40)
[2016-06-06] MEDS ORDERED: ONDANSETRON 4mg/2ml INJECTION IV PRN (16:00)
[2016-06-06] MEDS ORDERED: DESFLURANE 240 ML LIQUID IH ONE (16:43)
[2016-06-06] MEDS ORDERED: SUGAMMADEX 200 MG/2 ML INJECTION IV ONE (16:45)
--- NOTE | 2016-06-06 17:28 | GSPOSTPN ---
Procedure Procedure Date: June 06, 2016 Surgeon: Erna Assisting Surgeon: Jerrod Ramírez Anesthesia: Local, GETA ASA: 2 Procedure Robotic assisted laparoscopic cholecystectomy with FireFly imaging GS Diagnosis Postop Diagnosis Acute cholecystitis cholelithiasis Complications Complications Estimated Blood Loss See Anesthesia Record. Vital Signs See Anesthesia and PACU record. LAUREANO RAMÍREZ MOHEL June 06, 2016 17:28
[2016-06-06] MEDS: HYDROMORPHONE 2mg/ml INJECTION IV PRN ×2 (17:29→17:43)
[2016-06-06] MEDS ORDERED: KETOROLAC 30mg/ml INJECTION IV PRN (17:30)
[2016-06-06] MEDS ORDERED: HYDROCODONE/APAP 5 mg/325 mg TABLET PO PRN (17:30)
[2016-06-06] MEDS ORDERED: MORPHINE SULFATE 4 MG SYRINGE IV PRN (17:30)
--- NOTE | 2016-06-06 17:41 | ANESPO ---
Post-Op Note Date 06/06/16 Time: 17:40 Status Pt Participated in Evaluation: Pt participated in person Vital Signs Date Time Temp Pulse Resp B/P Pulse Ox O2 Delivery O2 Flow Rate FiO2 06/06/16 17:29 21 06/06/16 15:18 64 171/70 96 Room Air 06/06/16 14:55 98.4 Respiratory Function: Airway patent, Regular respirations Cardiovascular Function: Regular pulse Mental Status: Alert/oriented Pain Level Intensity: 7 (pain med given in pacu) Hydration: IV infusing Complications during Recovery None apparent Follow-Up Instructions Instructions Per Surgeon SYL FIORE CRNA June 06, 2016 17:41
--- NOTE | 2016-06-06 18:08 | NUR ---
Back from OR Pt transferred self from cart to bed. Pts VS stable on RA. Pt denies nausea at this time, rating pain a 7/10. present at time of transfer. Lap sites have dermabond intact, [address] Call light w/in reach, side rails up X2, bed alarm on.
--- NOTE | 2016-06-06 18:37 | NUR ---
Pain Pt rating pain a 08/15. This RN discussed pain medication options with Pt. Pt given IV Toradol per Pt request. Pt had PO intake of jello shortly after and tolerated well with no complaints of nausea. Given 2 tabs of [place] at that time.
--- NOTE | 2016-06-06 19:02 | OPNOTEF ---
DATE OF SERVICE 06/06/2016 SURGEON Max Umanzor MD GUEST SERVICE SUPERVISOR Jerrod Ramírez APRN PREOPERATIVE DIAGNOSIS Acute cholecystitis. POSTOPERATIVE DIAGNOSES Acute cholecystitis, hydrops of gallbladder. PROCEDURE Robotic-assisted laparoscopic cholecystectomy with use of Firefly biliary imaging. ANESTHESIA General endotracheal. EBL/FLUIDS Please see chart. BRIEF HISTORY/INDICATIONS Mrs. Sosa is a 60-year-old female who presented late last evening to our emergency room facility as a result of her history of ongoing abdominal pain. She did undergo a gallbladder sonogram as well as a CT scan that revealed evidence for symptomatic cholelithiasis/acute cholecystitis. The patient was given intravenous antibiotics and begun on IV fluids and intravenous narcotics/antiemetics. As a result of the above indications it was recommended to the patient she undergo surgical intervention/cholecystectomy. For completeness please refer to notes included in the patient's chart. FINDINGS Upon laparoscopy the patient was found to have significant acute cholecystitis. There was a large stone lodged within the neck of the gallbladder/infundibular portion of gallbladder. Gallbladder wall was significantly thickened and contained a fair amount of pericholecystic edema. A standard robotic-assisted laparoscopic cholecystectomy was able to be completed without incident. Liver edge was smooth without nodularities. Small bowel, omentum, colon, peritoneal surfaces which were visualized were normal limits. NARRATIVE OF PROCEDURE After informed consent was obtained the patient was brought to the operative suite and placed on the table in a supine fashion. The abdomen was then prepped and draped in sterile fashion. 0.25% Marcaine with epinephrine was injected just beneath the umbilicus. A 2-cm curved incision was made through the area of analgesia. Dissection was carried down into the deep subcuticular tissues and underlying fascia. Fascia was then grasped with two Sadiq clamps and retracted anteriorly. A 1-cm incision was made between the two Sadiq clamps. Hemostat was then introduced into the fascial incision and gently spread. A U-stitch was placed with 0-Vicryl. A 12-mm Lyric port was then placed through the peritoneal cavity. Pneumoperitoneum was established to a patient pressure of 15 mmHg utilizing carbon dioxide. Next, two additional 8-mm da Nikolas ports were then placed within the left upper quadrant and right lower quadrant visualization. Lastly, an additional 5-mm assist port was then placed under direct visualization along the right lateral abdominal wall. Abdominal cavity was explored via laparoscope. Findings were as noted above. The patient was then placed in reverse Trendelenburg position and rotated towards her left. Robot was then docked overlying the patient's right shoulder at a 45-degree angle. Gallbladder was found to be quite thickened and almost hemorrhagic in its appearance. Fundus of the gallbladder was grasped and begun to be retracted in a cephalad fashion by my vector control assistant through the port along the right lateral abdominal wall. During the process of lifting the gallbladder a small rent was created within the fundal portion of the gallbladder. This will be considered to be inherent to the procedure itself. White mucus-like material was expressed from the gallbladder lumen, indicative of hydrops of the gallbladder. There was a fair amount of omentum adherent to the gallbladder. This omentum was dissected bluntly away from the gallbladder with use of a da Nikolas suction-tip catheter. The omentum that was densely adherent to the gallbladder was divided with the use of electrocautery. At no point in time was electrocautery performed adjacent to a hollow viscus such as the transverse colon, duodenum or stomach. Eventually the gallbladder was able to be dissected free from the surrounding tissues and continued to be retracted in a cephalad and lateral fashion by my vector control assistant. Dissection was begun high upon the infundibulum of the gallbladder. There was a considerable thickened rind surrounding the gallbladder as a result of marked inflammation. Firefly biliary imaging was utilized during the process of dissection and the infundibular portion of the gallbladder was actually somewhat adherent to the common bile duct. The common bile duct did fluoresce quite well with Firefly biliary imaging. There was a large stone within the infundibulum of the gallbladder which did make dissection somewhat more tedious and difficult. The medial and lateral aspects of the infundibular portion of the gallbladder were then begun to be freed from the liver bed fossa. Cystic artery was identified and dissected out up onto the midportion of the infundibulum of the gallbladder. To further allow mobilization of the gallbladder I elected to go ahead and divide the cystic duct at this location secondary to the fact that it had been well dissected out up onto the midportion of the end of the gallbladder. A single Hem-o-Kandi clip was then placed upon the cystic artery adjacent to the midportion of the infundibulum of the gallbladder. An additional Hem-o-kandi clip was then placed just proximally and the cystic artery was then divided between these two Hem-o-kandi clips. This did allow better visualization of the medial aspect of the infundibulum of the gallbladder. Dissection was continued until the medial portion of the infundibulum of the gallbladder had been dissected well to the point that the infundibulum of the gallbladder was now dissected out circumferentially so that the only remaining structures coming forth from the infundibulum of the gallbladder were that of cystic artery. Firefly biliary imaging was performed and the cystic duct did not fluoresce but could be visualized down to the junction with the common bile duct. Common bile duct, as stated above, fluoresced quite well under Firefly biliary imaging. The infundibulum at this point in time had now been dissected completely away from the common bile duct and was being retracted laterally and caudally so that it was several centimeters now away from the common bile duct. I could clearly see the cystic duct as it coursed into the common bile duct. Cystic duct itself was fairly short and on the order of about 1 cm in length. First, a single Hem-o-Kandi clip was actually placed upon the most distal aspect of the infundibulum of the gallbladder just beyond the cystic duct-infundibular junction. An additional Hem-o-kandi clip was then placed upon the cystic duct just proximal to the infundibulum. This left about 8 mm or so of the cystic duct remnant before entering into the common bile duct. Cystic duct was then divided between the two clips. Gallbladder was then dissected off the liver bed fossa. As stated above, there was a considerable amount of pericholecystic edema and inflammatory changes surrounding the gallbladder. Gallbladder was almost completely dissected free and at this point in time it was left attached to the edge of the liver to provide ongoing exposure. Irrigation was then performed and all irrigant was suctioned until clear. Gallbladder fossa was hemostatic in nature. The previously placed Hem-o-Kandi clips upon the cystic artery and cystic duct remained to be intact. There was no evidence for bleeding. All irrigant was once again suctioned until clear. Gallbladder was dissected off of the remaining edge of the liver at its fundal portion. Robot was then undocked. The gallbladder was then placed a laparoscopic retrieval bag and removed via the infraumbilical port site. Port was then replaced and pneumoperitoneum was reestablished. Given the degree of inflammatory changes that was present I elected to leave a Benny drain. A 19-English Benny drain was placed within the port within the left upper quadrant and removed through my vector control assistant port. The drain was placed in a subhepatic location. The remaining ports were removed under direct visualization. Previously placed U-stitch was secured imbricating the fascia at the infraumbilical port site. All skin incisions were then closed in a subcuticular fashion with 4-0 Monocryl. Dermabond was placed overlying the incisions. The patient was awakened from her anesthetic and sent back to the recovery room once deemed in stable condition. Additionally, it should be noted that Jerrod Ramírez APRN, was present throughout the entire case and played a pivotal role in providing assistance and exposure during the course of the procedure. TRAY
--- NOTE | 2016-06-07 00:17 | NUR ---
Chart Check 24 hour chart check completed
[2016-06-07] MEDS: NORMAL SALINE 1,000 ML IV SCH (03:26)
[2016-06-07 03:28] VITALS: BP 129/71; PULSE 67; RESP 18; TEMP 98; O2SAT 96
--- NOTE | 2016-06-07 05:14 | NUR ---
SHIFT SUMMARY PT HAS SLEPT SOUNDLY THROUGHOUT THE NIGHT, ALERT AND ORIENTED X 3. NO PRNS GIVEN. PT DENIES NEED FOR PAIN MEDS. DENIES N/V/SOA. REGULAR DIET. UP WITH ASSIST X ONE AND GB TO BATHROOM, ADEQUATE OUTPUT. AMBLATED IN HALLWAYS LAST NIGHT. NS RUNNING @ 100ML/HR IN RIGHT HAND. HILLARY DRAIN WITH MINIMAL OUTPUT OF SEROSANGINEOUS DRAINAGE. LAP SITES C/D/I. BED LOCKED AND LOW, BED ALARM ON. CALL LIGHT WITHIN REACH. WILL CONTINUE TO MONITOR.
[2016-06-07] MEDS: LEVOTHYROXINE 112 MCG TABLET PO SCH (05:22)
[2016-06-07 05:23] LABS: HCT - HEMATOCRIT 35.2 % (36-46); HGB - HEMOGLOBIN 11.1 GM/DL (12-16); MEAN CORPUSCULAR HGB 27.8 UUG (26-34); MEAN CORPUSCULAR HGB CONC(MCHC 31.5 GM/DL (31-37); MEAN CORPUSCULAR VOLUME 88.2 UM3 (80-100); MEAN PLATELET VOLUME 10.7 UM3 (9.4-12.4); RED BLOOD COUNT 3.99 M/MM3 (4.00-5.20); WBC - WHITE BLOOD COUNT 11.6 T/MM3 (4.5-11.0)
[2016-06-07 06:25] LABS: BAND NEUTROPHILS # 0.3 T/MM3; BASOPHILS # (MANUAL) 0.1 T/MM3 (0-0.2); LYMPHOCYTES # (MANUAL) 0.6 T/MM3 (1-4.8); MONOCYTES # (MANUAL) 0.6 T/MM3 (0-0.8); TOTAL CELLS COUNTED 100 %
[2016-06-07] MEDS ORDERED: ACETAMINOPHEN 325 MG TABLET PO PRN (07:30)
--- NOTE | 2016-06-07 07:37 | NUR ---
PAIN Patient complains of minimal amount of pain, rating it 1/10. Requests Tylenol. 650mg is given PO. Patient is now up in the bathroom giving herself a sponge bath.
[2016-06-07] MEDS ORDERED: IBUPROFEN 800 MG TABLET PO PRN (08:00)
[2016-06-07] MEDS: MUPIROCIN 2% EA NOSTRIL SCH (08:04)
[2016-06-07] MEDS: PROPRANOLOL LA 80 MG CAPSULE PO SCH (08:05)
[2016-06-07 08:09] VITALS: PULSE 61; RESP 16
[2016-06-07 08:11] VITALS: BP 130/66; PULSE 61; RESP 16; TEMP 96.9; O2SAT 99
[2016-06-07] MEDS ORDERED: TRIAMTERENE/HCTZ 37.5mg/25mg TABLET PO SCH (09:00)
[2016-06-07] MEDS ORDERED: ERTAPENEM 1 G INJECTION IV ONE (09:00)
[2016-06-07] MEDS ORDERED: ERTAPENEM 1 G in NS 100 ML IV SCH (09:00)
--- NOTE | 2016-06-07 10:10 | NUR ---
JONATHON CM IN TO VISIT WITH PT. SHE IS ALERT AND ORIENTED. SHE PLANS TO DC HOME. SHE DENIES DC NEEDS. GINAE SCORE IS 3. Addendum: 06/07/16 at 1011 by CARMEN BABIN RN Amended: Links added.
[2016-06-07 11:59] LABS: ALBUMIN 3.4 G/DL (3.5-5.0); ALBUMIN/GLOBULIN RATIO 1.1 RATIO (1.1-2.2); ALKALINE PHOSPHATASE 65 U/L (38-126); ALT (SGPT) 40 U/L (9-52); ANION GAP 11 MEQ/L (5-15); AST (SGOT) 54 U/L (14-36); BUN/CREATININE RATIO 13 RATIO (6-26); CALCIUM 8.6 MG/DL (8.4-10.2); CHLORIDE 104 MEQ/L (98-107); CO2 - CARBON DIOXIDE 27 MEQ/L (22-30); CREATININE 0.7 MG/DL (0.7-1.2); GLOMERULAR FILTRATION RATE 85; GLUCOSE 122 MG/DL (65-110); POTASSIUM 4.1 MEQ/L (3.6-5); SODIUM 142 MEQ/L (134-144); TOTAL PROTEIN 6.4 G/DL (6.3-8.2)
[2016-06-07] MEDS ORDERED: LEVO500T63 PO (12:14)
--- NOTE | 2016-06-07 12:25 | GSDISC ---
General Date Date DATE: 06/07/16 TIME: 12:16 Attending Physician Max Umanzor MD,Facs,Cws Admitting Physician Max Umanzor MD,Facs,Cws Consulting Physician Discharge Diagnosis: (1) Cholelithiasis and acute cholecystitis with obstruction (2) Elevated WBC count Status: Resolved (3) HTN (hypertension) (4) Other postablative hypothyroidism (5) Arthritis Procedures Robotic assisted laparoscopic cholecystectomy with FireFly imaging Laboratory Laboratory Item Value Date Time Total Bilirubin 0.50 MG/DL 06/07/16424 Total Bilirubin 0.60 MG/DL 06/06/16425 Total Bilirubin 0.70 MG/DL 06/05/161914 Aspartate Amino Transf (AST/SGOT) 31 U/L 06/05/161914 Alanine Aminotransferase (ALT/SGPT) 39 U/L 06/05/161914 Aspartate Amino Transf (AST/SGOT) 17 U/L # 06/06/16425 Alanine Aminotransferase (ALT/SGPT) 41 U/L 06/06/16425 Alanine Aminotransferase (ALT/SGPT) 40 U/L 06/07/16424 Lipase 40 U/L 06/05/161914 Alkaline Phosphatase 79 U/L 06/05/161914 Alkaline Phosphatase 62 U/L 06/06/16425 Alkaline Phosphatase 65 U/L 06/07/16424 Laboratory Tests Test 06/07/16 04:25 White Blood Count 11.6T/MM3 Red Blood Count 3.99M/MM3 Hemoglobin 11.1GM/DL Hematocrit 35.2% Mean Corpuscular Volume 88.2UM3 Mean Corpuscular Hemoglobin 27.8UUG Mean Corpuscular Hemoglobin Concent 31.5GM/DL RDW Standard Deviation 44.0FL Platelet Count 190T/MM3 Mean Platelet Volume 10.7UM3 Immature Granulocyte % (Auto) % Neutrophils (%) (Auto) % Lymphocytes (%) (Auto) % Monocytes (%) (Auto) % Eosinophils (%) (Auto) % Basophils (%) (Auto) % Absolute Immature Granulocyte (auto T/MM3 Absolute Neutrophils (auto) T/MM3 Absolute Lymphocytes (auto) T/MM3 Absolute Monocytes (auto) T/MM3 Absolute Eosinophils (auto) T/MM3 Absolute Basophils (auto) T/MM3 Neutrophils % (Manual) 86.0% Band Neutrophils % 3.0% Lymphocytes % (Manual) 5.0% Monocytes % (Manual) 5.0% Basophils % (Manual) 1.0% Absolute Neutrophils (Manual) 10.0T/MM3 Band Neutrophils # 0.3T/MM3 Lymphocytes # (Manual) 0.6T/MM3 Monocytes # (Manual) 0.6T/MM3 Basophils # (Manual) 0.1T/MM3 Red Cell Morphology Comment Normal Turbidity < 20 Sodium Level 142MEQ/L Potassium Level 4.1MEQ/L Chloride Level 104MEQ/L Carbon Dioxide Level 27MEQ/L Anion Gap 11MEQ/L Blood Urea Nitrogen 9.0MG/DL Creatinine 0.7MG/DL Glomerular Filtration Rate Calc 85 BUN/Creatinine Ratio 13RATIO Glucose Level 122MG/DL Calculated Osmolality 273MOSM/KG Calcium Level 8.6MG/DL Total Bilirubin 0.50MG/DL Icterus Index < 2 Alanine Aminotransferase (ALT/SGPT) 40U/L Alkaline Phosphatase 65U/L Total Protein 6.4G/DL Albumin 3.4G/DL Globulin 3.0G/DL Albumin/Globulin Ratio 1.1RATIO Chemistry Specimen Hemolysis < 15 Pathology Pathology Pending at time of discharge Radiology ABD ultrasound: Impression: Cholelithiasis with minimal prominence of the common bile duct and a positive sonographic Macario's sign raising consideration for acute cholecystitis. CT abdomen: Findings: Lower lungs: Basilar dependent atelectasis. The visualized heart is normal in size without pericardial effusion. Partially visualized bilateral breast implants. Abdomen: The liver demonstrates a few cysts but otherwise enhances homogeneously without focal mass. The gallbladder is distended and contains a stone near the neck. No biliary ductal dilatation. Mild fatty infiltration seen surrounding the gallbladder within the right upper quadrant. The pancreas enhances homogeneously. The spleen is normal in size and enhancement. The adrenal glands are within normal limits. The kidneys enhance symmetrically and appear normal. The ureters are normal in course and caliber. The abdominal aorta is normal in course and caliber with scattered atherosclerotic calcifications noted. The mesenteric arterial and venous structures appear patent. The stomach is partially distended and appears normal. Small bowel loops are normal in caliber without evidence of obstruction. The colon appears normal. The appendix is not seen with certainty however no secondary signs of acute appendicitis are identified. No intra-abdominal free air, free fluid, focal fluid collections, or lymphadenopathy. Pelvis: The bladder is distended and appears normal. The uterus is surgically absent. No adnexal masses seen. No pelvic free fluid or lymphadenopathy. Osseous structures and soft tissues: No acute osseous abnormality. Mild degenerative spondylosis of the visualized spine. Impression: Gallstone noted at the gallbladder neck with mild inflammatory stranding within the fat surrounding the gallbladder raising consideration for acute cholecystitis. Hospital Course 06-06-2016 ASSESSMENT 60-year-old female with acute cholecystitis/symptomatic cholelithiasis. PLAN Robotic-assisted laparoscopic cholecystectomy. I informed the patient it would be my recommendation as a result of the above circumstances that we would proceed with surgical intervention/cholecystectomy. I did discuss in detail with the patient what a robotic-assisted laparoscopic cholecystectomy entailed and its associated risk which included but was not inclusive of bleeding, infection , potential conversion to an open procedure, potential injury to adjacent structures, especially the common bile duct. The patient understood and wished to proceed as stated above. Additionally, it should be noted that upon her admission last evening I had requested the patient begin broad spectrum antibiotics. The patient has received Invanz.. Robotic laparoscopic cholecystectomy with FireFly imaging performed, see operative note for details. 06-07-2016 POD#1 She is doing very well, Abd pain that brought her to the ED is gone, she is having some incisional pain. Eating regular diet for breakfast and lunch. She had another dose of Invanz this morning, will continue Levaquin 500 mg daily x5 days starting 06/08/16 Drain management June [address] Umanzor's office and routine post op visit June 17. She follows with Dr. Johnson in the near future, a previously scheduled appointment for medical management. Home Meds Active Scripts Levofloxacin (Levaquin) 500 Mg Tablet, 1 TAB PO DAILY for 5 Days, #5 Prov:LAUREANO SHEPPARD APRN 06/07/16 Ondansetron (Zofran Odt) 4 Mg Tab.rapdis, 4 MG PO Q8HR, #10 TAB 0 Refills Orally disintegrating tablet Prov:JEFF TRISTAN APRN 06/05/16 Hydrocodone/Acetaminophen ([place]alls 5-325 Tablet) 5-325 Tablet, 1 TAB PO Q6H Y for PAIN, #15 TAB 0 Refills Prov:JEFF TRISTAN APRN 06/05/16 Reported Medications Acetaminophen (Acetaminophen) 500 Mg Tablet, 1000 MG PO Q8H Y for PAIN 06/05/16 Meloxicam (Meloxicam) 7.5 Mg Tablet, 7.5 MG PO DAILY Y for PAIN 06/05/16 Triamterene/Hydrochlorothiazid (Triamterene-Hctz 37.5-25 mg Tb) 1 Each Tablet, 0.5 TAB PO DAILY 06/05/16 Levothyroxine Sodium (Synthroid) 112 Mcg Tablet, 112 MCG PO ACB 06/05/16 Propranolol HCl (Propranolol HCl) 80 Mg Cap.sa.24h, 80 MG PO DAILY 06/05/16 Discharge Disposition Good condition. LAUREANO SHEPPARD APRN June 07, 2016 12:20
--- NOTE | 2016-06-07 12:29 | PNSURG ---
Subjective DATE: 06/07/16 TIME: 12:25 Interval History Doing well this am. Currently taking Tylenol for pain. Ate a regular breakfast without difficulty. Voiding and ambulating without difficulty. She feels comfortable going home. 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 We discussed post op activity, Levaquin for 5 days starting tomorrow. Drain management with removal in Dr. Umanzor's office June 10. Objective Vital Signs Date Time Temp Pulse Resp B/P Pulse Ox O2 Delivery O2 Flow Rate FiO2 06/07/16 08:11 96.9 61 16 130/66 99 Room Air 06/06/16 18:05 2.00 Height (Feet): 5 Height (Inches): 6.00 Weight (Kilograms): 91.900 BMI 33.4 General Appearance: Alert, Orientated x 2, Orientated x 3 Comments nonlabored Abdominal Brief: FOUND: appropriately tender (at trocar sites), soft Incision: FOUND: Clean, Dry, Intact, open to air (Dermabond glue in tact), NOT FOUND: erythema Drains Present: FOUND Jose Esquivel Drain Output: FOUND: serosanguinous Laboratory Item Value Date Time Total Bilirubin 0.70 MG/DL 06/05/16 1915 Total Bilirubin 0.60 MG/DL 06/06/16 0426 Total Bilirubin 0.50 MG/DL 06/07/16 0425 Trend Liver Function Tests Test 06/05/16 19:15 06/06/16 04:26 06/07/16 04:25 Alanine Aminotransferase (ALT/SGPT) 39U/L (9-52) 41U/L (9-52) 40U/L (9-52) Alkaline Phosphatase 79U/L (38-126) 62U/L (38-126) 65U/L (38-126) Aspartate Amino Transf (AST/SGOT) 31U/L (14-36) 17U/L (14-36) 54U/L (14-36) Laboratory Tests 06/05/16 19:15 06/06/16 04:26 06/07/16 04:25 Laboratory Tests 06/05/16 19:15 06/06/16 04:26 06/07/16 04:25 Procedure Procedure Date: June 06, 2016 Surgeon: Erna Procedure Robotic assisted laparoscopic cholecystectomy with FireFly imaging Assessment & Plan Problems: (1) Cholelithiasis and acute cholecystitis with obstruction (2) Elevated WBC count Status: Resolved (3) HTN (hypertension) (4) Other postablative hypothyroidism Assessment 06-07-2016 POD#1 She is doing very well, Abd pain that brought her to the ED is gone, she is having some incisional pain. Eating regular diet for breakfast and lunch. She had another dose of Invanz this morning, will continue Levaquin 500 mg daily x5 days starting 06/08/16 Drain management June [address] Umanzor's office and routine post op visit June 17. She follows with Dr. Johnson in the near future, a previously scheduled appointment for medical management. Code Status Full Code Hospital Course Summary Disclaimer The visit summary below is not to be considered part of the above Progress Note. Hospital Course Summary 06-06-2016 ASSESSMENT 60-year-old female with acute cholecystitis/symptomatic cholelithiasis. PLAN Robotic-assisted laparoscopic cholecystectomy. I informed the patient it would be my recommendation as a result of the above circumstances that we would proceed with surgical intervention/cholecystectomy. I did discuss in detail with the patient what a robotic-assisted laparoscopic cholecystectomy entailed and its associated risk which included but was not inclusive of bleeding, infection , potential conversion to an open procedure, potential injury to adjacent structures, especially the common bile duct. The patient understood and wished to proceed as stated above. Additionally, it should be noted that upon her admission last evening I had requested the patient begin broad spectrum antibiotics. The patient has received Invanz.. Robotic laparoscopic cholecystectomy with FireFly imaging performed, see operative note for details. 06-07-2016 POD#1 She is doing very well, Abd pain that brought her to the ED is gone, she is having some incisional pain. Eating regular diet for breakfast and lunch. She had another dose of Invanz this morning, will continue Levaquin 500 mg daily x5 days starting 06/08/16 Drain management June [address] Umanzor's office and routine post op visit June 17. She follows with Dr. Johnson in the near future, a previously scheduled appointment for medical management. LAUREANO SHEPPARD APRN June 07, 2016 12:28
[2016-06-07 12:48] VITALS: BP 129/67; PULSE 66; RESP 16; TEMP 97.2; O2SAT 98
--- NOTE | 2016-06-07 12:51 | NUR ---
DISCHARGE INSTRUCTIONS/HILLARY Patient is taught how to empty her HILLARY drain, and she performs this at this time without difficulty. Discharge instructions gone over, and patient verbalized understanding. Family is present.
--- NOTE | 2016-06-07 13:25 | NUR ---
DISMISSED to home with . Taken to front door in a wheelchair, with belongings. Safety maintained.
--- OUTSIDE RECORDS SUMMARY | 2016-06-08 13:48 | XMS REPORT | Continuity of Care Document ---
Author Author [facility] Organization [facility] Address Unknown Phone Unavailable Support Name Relationship Address Phone ARETHA GRAHAM FACS, MD Caregiver [address] [place] [address] Unavailable ARETHA GRAHAM FACS, MD Caregiver [address] [place] [address] Unavailable TYE SABA MD Caregiver [address] [place] [address] Unavailable SANDEE DAN DO Caregiver [address] [place] [address] Unavailable PATRICIO BECKMAN Next Of Kin [address] [place] [address] CP Insurance Providers Guarantor Montse Beckman Address [address] [place] [address] CP Email [email or web address] Payer [employer] Policy Number [id number] Subscriber's Name Patricio Beckman Relationship 01 Spouse Group Number [id number] Advance Directives Directive Response Recorded Date/Time Advanced Directives Type None 06/05/16 6:43pm Ordered Resuscitation Status Full Code 06/05/16 8:00pm Resuscitation Documents on File No 06/05/16 10:29pm DPOA for Healthcare Only No 06/06/16 8:42am Living Will No 06/05/16 10:29pm Advance Directive Consult Information Given 06/06/16 8:44am Problems Active Problems Medical Problem Onset Date Status Arthritis Unknown Cholelithiasis and acute cholecystitis with obstruction Unknown HTN (hypertension) Unknown Hypothyroidism Unknown Chronic Other postablative hypothyroidism Unknown Past Problems Medical Problem Onset Date Abdominal pain Unknown Cholecystitis Unknown Elevated WBC count Unknown RUQ abdominal pain Unknown Medications Current Home Medications Medication Dose Units Route Directions Days Qty Instructions Start Date Acetaminophen 500 Mg Tablet 1,000 Mg Oral Every 8 Hours as needed for Pain 06/05/16 Hydrocodone/Acetaminophen ([place] 5-325 Tablet) 5-325 Tablet 1 Tab Oral Every 6 Hours as needed for Pain 15 Tablet 06/05/16 Levofloxacin (Levaquin) 500 Mg Tablet 1 Tab Oral Daily 5 Days 5 03/25 Levothyroxine Sodium (Synthroid) 112 Mcg Tablet 112 [...] Problem Response Recorded Date/Time Onset Date Status Reason for Hospitalization abd pain 06/07/2016 12:19pm Not Applicable Not Applicable Chewing Tobacco Status No 10/30/2012 11:38am Not Applicable Not Applicable Hx Substance Use No 06/05/2016 6:55pm Not Applicable Not Applicable Hx Alcohol Use No 06/05/2016 6:55pm Not Applicable Not Applicable Has the pt used tobacco in the last 12 months No 06/06/2016 8:45am Not Applicable Not Applicable Query Response Start Date Stop Date Smoking Status Never smoker Hospital Discharge Instructions Instructions: Care Instructions: Reason for Hospitalization: abd pain I was in the hospital because (patient own words): stomach pain Discharge Diet: regular Discharge Activity: Do not drive, operate machinery for 24 hours after surgery or while taking pain medication. No lifting more than 25 pounds for 4 weeks. May shower today. Follow Up Appointments: Follow up with Елена Bang RN/ Dr. Graham in June 10 at 10:30 for drain management. BRING drain record with you. Follow up with Dr. Graham June 17 at 1:15 pm Keep appointment with Dr. Dan as planned. Pending Lab / Results: Will review at f/u apt Patient Instructions: May Shower No Bathing or swimming. Wound/Incision Care: Leave incision open to air. Do not rub or pick off the glue. Pain Scale Utilized to Educate Patient: 0-10 Pain Scale Pain Management/Treatment: [place] (Hydrocodone) from the ED visit as directed, if needed. Ibuprofen or Tylenol as needed. Do not take the [place] and Tylenol together, there is tylenol in [place] Expected Signs/Symptoms: Gradual increase in strength and endurance. Decrease in incisional discomfort. Tenderness and bruising around trocar/incision sites. Drainage will become [employer] and clearer in color. Notify Physician If: 1. Call your surgeon if you are having problems relating to your surgery at [phone]. 2. Problems such as: Temp above 101.5 degrees You develop redness, excessive swelling of the incision, increasing pain or excessive foul smelling drainage. 3. If the office is closed, call [facility] at [phone] and have your Surgeon paged. During Business Hours:: Call your surgeon at at [phone]. After Business Hours:: If the office is closed, call [facility] at [phone] and have your Surgeon paged. Condition at time of discharge: Good Plan of Care Discharge Date 06/07/16 1:25pm Disposition 01 DISCHARGED HOME, SELF-CARE Instructions/Education Provided Jose-Esquivel Drain Care (DC) Laparoscopic Cholecystectomy (DC) Prescriptions See Medication Section Care Plan and Goals See Discharge Instructions Section Functional Status Query Response Date Recorded Mobility Status Ambulatory June 07, 2016 12:19pm Assistive Devices None June 07, 2016 12:19pm Activity Limitations None June 07, 2016 12:19pm Feeding Ability Independent June 07, 2016 12:19pm Toileting Ability Independent June 07, 2016 12:19pm Grooming Ability Independent June 07, 2016 12:19pm Dressing Ability Independent June 07, 2016 12:19pm Driving Ability Independent June 07, 2016 12:19pm Housework Ability Independent June 07, 2016 12:19pm Meal Preparation Ability Independent June 07, 2016 12:19pm Stair Climbing Ability Independent June 07, 2016 12:19pm Ability to complete ADL's impeded by No change June 07, 2016 12:19pm Cognitive/Perceptual Impairments None June 07, 2016 12:19pm Visual Assistive Devices Glasses June 05, 2016 10:15pm Preferred Method of Learning Reading June 05, 2016 10:15pm Allergies, Adverse Reactions, Alerts Allergen Type Severity Reaction Status Last Updated Sulfa (Sulfonamide Antibiotics) Allergy Unknown SWELLING Active 06/05/16 Immunizations Query Response on File Recorded Date/Time Hx Influenza Vaccination Y 06/06/16 8:45am Hx Pneumococcal Vaccination No 06/06/16 8:45am Hx Influenza Vaccination Y 06/06/16 8:45am Influenza Vaccine Hx Dec 2015 06/06/16 1:13pm Vital Signs Acute Vital Signs Vital Response Date/Time Temperature (Fahrenheit) 97.2 deg F (96.8 - 99.1) 06/07/2016 12:48pm Temperature (Calculated Celsius) 36.16965 degrees C (36.0 - 37.3) 06/07/2016 12:48pm Temperature Source Oral 06/07/2016 12:48pm Pulse Rate (adult) 66 bpm (60 - 100) 06/07/2016 12:48pm Respiratory Rate 16 breaths/min (10 - 20) 06/07/2016 12:48pm O2 Sat by Pulse Oximetry 98 % (90 - 100) 06/07/2016 12:48pm Oxygen Delivery Method Room Air 06/07/2016 12:48pm Oxygen Delivery Method Room Air 06/06/2016 8:22pm Oxygen Flow Rate 2.00 L/min 06/06/2016 6:05pm Blood Pressure 129/67 mm Hg 06/07/2016 12:48pm Blood Pressure Source Automatic Cuff 06/07/2016 12:48pm Height (Feet) 5 feet 06/07/2016 12:29pm Height (Inches) 6.00 inches 06/07/2016 12:29pm Weight (Kilograms) 91.900 kg 06/07/2016 8:08am Body Mass Index (BMI) 33.4 06/05/2016 10:27pm Results Laboratory Results Test Name Result Units Flags Reference Collection Date/Time Result Date/ Time Comments White Blood Count 11.6 T/MM3 H 4.5-11.0 06/07/2016 4:25am 06/07/2016 6: 01am Red Blood Count 3.99 M/MM3 L 4.00-5.20 06/07/2016 4:25am 06/07/2016 6: 01am Hemoglobin 11.1 GM/DL L 12-16 06/07/2016 4:25am 06/07/2016 6:01am Hematocrit 35.2 % L 36-46 06/07/2016 4:25am 06/07/2016 6:01am Mean Corpuscular Volume 88.2 UM3 80-100 06/07/2016 4:06/07/2016 6: 01am Mean Corpuscular Hemoglobin 27.8 UUG 26-34 06/07/2016 4:2016 6:01am Mean Corpuscular Hemoglobin Concent 31.5 GM/DL 31-37 06/07/2016 4:06/07/2016 6:01am RDW Standard Deviation 44.0 FL 36.9-50.2 06/07/2016 4:06/07/2016 6 :01am Platelet Count 190 T/MM3 130-400 06/07/2016 4:06/07/2016 6:01am Mean Platelet Volume 10.7 UM3 9.4-12.4 06/07/2016 4:06/07/2016 6: 01am Neutrophils (%) (Auto) 70.5 % H 33-66 06/06/2016 4:06/06/2016 4: 55am Lymphocytes (%) (Auto) 19.4 % L 23-45 06/06/2016 4:06/06/2016 4: 55am Monocytes (%) (Auto) 7.9 % 0-9.0 06/06/2016 4:06/06/2016 4:55am Eosinophils (%) (Auto) 1.8 % 0-4 06/06/2016 4:06/06/2016 4:55am Basophils (%) (Auto) 0.2 % 0-2 06/06/2016 4:06/06/2016 4:55am Immature Granulocyte % (Auto) 0.2 % 0.0-0.5 06/06/2016 4:2016 4:55am Absolute Neutrophils (auto) 7.7 T/MM3 1.8-7.7 06/06/2016 4:2016 4:55am Absolute Lymphocytes (auto) 2.1 T/MM3 1-4.8 06/06/2016 4:2016 4:55am Absolute Monocytes (auto) 0.9 T/MM3 H 0-0.8 06/06/2016 4:2016 4:55am Absolute Eosinophils (auto) 0.2 T/MM3 0-0.5 06/06/2016 4:2016 4:55am Absolute Basophils (auto) 0.0 T/MM3 0-0.2 06/06/2016 4:26am 06/06/2016 4:55am Absolute Immature Granulocyte (auto 0.02 T/MM3 0.00-0.03 06/06/2016 4: 26am 06/06/2016 4:55am Neutrophils % (Manual) 86.0 % H 33-66 06/07/2016 4:06/07/2016 6: 26am Band Neutrophils % 3.0 % 0-6 06/07/2016 4:06/07/2016 6:26am Lymphocytes % (Manual) 5.0 % L 23-45 06/07/2016 4:06/07/2016 6: 26am Monocytes % (Manual) 5.0 % 0-9.0 06/07/2016 4:06/07/2016 6:26am Basophils % (Manual) 1.0 % 0-2 06/07/2016 4:06/07/2016 6:26am Band Neutrophils # 0.3 T/MM3 06/07/2016 4:06/07/2016 6:26am Absolute Neutrophils (Manual) 10.0 T/MM3 H 1.8-7.7 06/07/2016 4:03/2016 6:26am Lymphocytes # (Manual) 0.6 T/MM3 L 1-4.8 06/07/2016 4:06/07/2016 6: 26am Monocytes # (Manual) 0.6 T/MM3 0-0.8 06/07/2016 4:06/07/2016 6: 26am Basophils # (Manual) 0.1 T/MM3 0-0.2 06/07/2016 4:06/07/2016 6: 26am Red Cell Morphology Comment NORMAL 06/07/2016 4:06/07/2016 6: 26am Icterus Index < 2 0-7 06/07/2016 4:06/07/2016 11:59am Chemistry Specimen Hemolysis < 15 0-25 06/07/2016 4:06/07/2016 11:59am 0-25: Specimen Exhibited No Hemolysis. Turbidity < 20 0-20 06/07/2016 4:06/07/2016 11:59am Sodium Level 142 MEQ/L 134-144 06/07/2016 4:06/07/2016 11:59am Potassium Level 4.1 MEQ/L 3.6-5 06/07/2016 4:06/07/2016 11:59am Chloride Level 104 MEQ/L 98-107 06/07/2016 4:06/07/2016 11:59am Carbon Dioxide Level 27 MEQ/L 22-30 06/07/2016 4:06/07/2016 11: 59am Anion Gap 11 MEQ/L 5-15 06/07/2016 4:06/07/2016 11:59am Blood Urea Nitrogen 9.0 MG/DL 7-17 06/07/2016 4:06/07/2016 11: 59am Creatinine 0.7 MG/DL 0.7-1.2 06/07/2016 4:06/07/2016 11:59am BUN/Creatinine Ratio 13 RATIO 6-06/07/2016 4:06/07/2016 11: 59am Glomerular Filtration Rate Calc 85 06/07/2016 4:06/07/2016 11: 59am Glucose Level 122 MG/DL H 65-110 06/07/2016 4:06/07/2016 11:59am Calculated Osmolality 273 MOSM/KG 261-280 06/07/2016 4:06/07/2016 11:59am Calcium Level 8.6 MG/DL 8.4-10.2 06/07/2016 4:06/07/2016 11:59am Total Bilirubin 0.50 MG/DL 0.20-1.30 06/07/2016 4:06/07/2016 11: 59am Alkaline Phosphatase 65 U/L 38-126 06/07/2016 4:06/07/2016 11: 59am Total Protein 6.4 G/DL 6.3-8.2 06/07/2016 4:06/07/2016 11:59am Albumin 3.4 G/DL L 3.5-5.0 06/07/2016 4:06/07/2016 11:59am Globulin 3.0 G/DL 2.4-3.6 06/07/2016 4:06/07/2016 11:59am Albumin/Globulin Ratio 1.1 RATIO 1.1-2.2 06/07/2016 4:25am 06/07/2016 11:59am Aspartate Amino Transf (AST/SGOT) 54 U/L D H 14-36 06/07/2016 4:25am 03/2016 12:21pm Alanine Aminotransferase (ALT/SGPT) 40 U/L 9-52 06/07/2016 4:25am 06/07 11:59am Troponin I < 0.012 ng/ml 0-0.12 06/06/2016 4:26am 06/06/2016 5:14am Troponin values with a difference of 55% increase from orginal troponin value represent a true biological DELTA value. (%increase Calc=Orginal Troponin value, divided by subsequent Troponin value, multiplied by 100) Lipase 40 U/L 23-300 06/05/2016 7:15pm 06/05/2016 7:36pm Urine Collection Type [place]ID[place] 06/05/2016 7:42pm 2016 7:49pm Urine Color YELLOW YELLOW 06/05/2016 7:42pm 06/05/2016 7:49pm Urine Turbidity CLEAR CLEAR 06/05/2016 7:42pm 06/05/2016 7:49pm Urine Specific [place] <=1.005 L 1.015-1.025 06/05/2016 7:42pm 2016 7:49pm Urine pH 6.5 5.0-8.0 06/05/2016 7:42pm 06/05/2016 7:49pm Urine Leukocyte Esterase NEGATIVE NEGATIVE 06/05/2016 7:42pm 2016 7:49pm Urine Nitrite NEGATIVE NEGATIVE 06/05/2016 7:42pm 06/05/2016 7:49pm Urine Protein NEGATIVE NEGATIVE 06/05/2016 7:42pm 06/05/2016 7:49pm Urine Glucose (UA) NEGATIVE NEGATIVE 06/05/2016 7:42pm 06/05/2016 7: 49pm Urine Ketones TRACE A NEGATIVE 06/05/2016 7:42pm 06/05/2016 7:49pm Urine Urobilinogen 0.2 EU/DL NORMAL 06/05/2016 7:42pm 06/05/2016 7: 49pm Urine Bilirubin NEGATIVE NEGATIVE 06/05/2016 7:42pm 06/05/2016 7: 49pm Urine Blood NEGATIVE NEGATIVE 06/05/2016 7:42pm 06/05/2016 7:49pm Urinalysis Comment MICROSCOPIC NOT IND. 06/05/2016 7:42pm 2016 7:49pm Name: MONTSE BECKMAN Unit #: [id number] : 1955 Sex: F Admit Date: 06/05/16 Loc / Svc: SRG Discharge Date: DIAGNOSTIC IMAGING REPORT Report #: [id number] [facility] [place] Indication: ITS.REASON: right upper quadrant pain Procedure: CT ABD/PELVIS W/CONTRAST ONLY: Encounter: Initial Comparison: Subsequent right upper quadrant ultrasound of the same day Technique: Axial CT images were performed through the abdomen and pelvis after the administration of intravenous contrast. Coronal and sagittal reformatted images were also obtained. Automated Exposure Control and Iterative Reconstruction dose reducing techniques were utilized. Contrast: Omnipaque 300 100 mL Findings: Lower lungs: Basilar dependent atelectasis. The visualized heart is normal in size without pericardial effusion. Partially visualized bilateral breast implants. Abdomen: The liver demonstrates a few cysts but otherwise enhances homogeneously without focal mass. The gallbladder is distended and contains a stone near the neck. No biliary ductal dilatation. Mild fatty infiltration seen surrounding the gallbladder within the right upper quadrant. The pancreas enhances homogeneously. The spleen is normal in size and enhancement. The adrenal glands are within normal limits. The kidneys enhance symmetrically and appear normal. The ureters are normal in course and caliber. The abdominal aorta is normal in course and caliber with scattered atherosclerotic calcifications noted. The mesenteric arterial and venous structures appear patent. The stomach is partially distended and appears normal. Small bowel loops are normal in caliber without evidence of obstruction. The colon appears normal. The appendix is not seen with certainty however no secondary signs of acute appendicitis are identified. No intra-abdominal free air, free fluid, focal fluid collections, or lymphadenopathy. Pelvis: The bladder is distended and appears normal. The uterus is surgically absent. No adnexal masses seen. No pelvic free fluid or lymphadenopathy. Osseous structures and soft tissues: No acute osseous abnormality. Mild degenerative spondylosis of the visualized spine. Impression: Gallstone noted at the gallbladder neck with mild inflammatory stranding within the fat surrounding the gallbladder raising consideration for acute cholecystitis. The above report concurs with the preliminary report provided by virtual radiologic at 7:58 PM. . Procedures Procedure Status Date Provider(s) Ther/proph/diag inj iv push Completed 06/05/16 Tx/pro/dx inj new drug addon Completed 06/05/16 Robot-assisted cholecystectomy Completed 06/06/16 ARETHA GRAHAM MD, FACS , CWS Encounters Encounter Location Arrival/Admit Date Discharge/Depart Date Attending Provider Discharged Inpatient (obs) [facility] 06/05/16 9:49pm 06/07/16 1: 25pm ARETHA GRAHAM FACS, MD Departed Emergency Room [facility] 06/05/16 12:58pm 06/05/16 2: 07pm ANG NARVAEZ MD
--- OUTSIDE RECORDS SUMMARY | 2016-06-08 13:49 | XMS REPORT | Continuity of Care Document ---
Author Author [facility] Organization [facility] Address Unknown Phone Unavailable Support Name Relationship Address Phone ARETHA GRAHAM FACS, MD Caregiver [address] [place] [address] Unavailable ARETHA GRAHAM FACS, MD Caregiver [address] [place] [address] Unavailable TYE SABA MD Caregiver [address] [place] [address] Unavailable SANDEE DAN DO Caregiver [address] [place] [address] Unavailable PATRICIO BECKMAN Next Of Kin [address] [place], [place] [id number] CP Insurance Providers Guarantor Montse Beckman Address [address] [place] [address] CP Email [email or web address] Payer [facility] Policy Number [id number] Subscriber's Name Patricio Beckman Relationship 01 Spouse Group Number [id number] Advance Directives Directive Response Recorded Date/Time Advanced [...] Hours as needed for Pain 06/05/16 Hydrocodone/Acetaminophen ([place] 5-325 Tablet) 5-325 Tablet 1 Tab Oral [...] Educate Patient: 0-10 Pain Scale Pain Management/Treatment: [place] (Hydrocodone) from the ED visit as directed, if needed. Ibuprofen or Tylenol as needed. Do not take the [place] and Tylenol together, there is tylenol in [place] Expected Signs/Symptoms: Gradual increase in strength and endurance. Decrease in incisional discomfort. Tenderness and bruising around trocar/incision sites. Drainage will become special library librarian and clearer in color. Notify Physician If: 1. Call your surgeon if you are having problems relating to your surgery at [phone]. 2. Problems such as: Temp above 101.5 degrees You develop redness, excessive swelling of the incision, increasing pain or excessive foul smelling drainage. 3. If the office is closed, call [facility] at [phone] and have your Surgeon paged. During Business Hours:: Call your surgeon at at [phone]. After Business Hours:: If the office is closed, call [facility] at [phone] and have your Surgeon paged. Condition at time of discharge: Good Plan of Care Discharge Date 06/07/16 1:25pm Instructions/Education Provided Jose-Esquivel Drain Care (DC) Laparoscopic Cholecystectomy (DC) Prescriptions See Medication Section Functional Status Query Response Date Recorded [...] - 99.1) 06/07/2016 12:48pm Temperature (Calculated Celsius) 36.25038 degrees C (36.0 - 37.3) 06/07/2016 12:48pm [...] Mean Corpuscular Volume 88.2 UM3 80-100 06/07/2016 4:25am 06/07/2016 6: 01am Mean Corpuscular Hemoglobin 27.8 UUG [...] Absolute Basophils (auto) 0.0 T/MM3 0-0.2 06/06/2016 4:am 06/06/2016 4:55am Absolute Immature Granulocyte (auto 0.02 T/MM3 0.00-0.03 06/06/2016 4: am 06/06/2016 4:55am Neutrophils % (Manual) 86.0 % [...] 4:06/07/2016 11:59am Blood Urea Nitrogen 9.0 MG/DL 7-06/07/2016 4:06/07/2016 11: 59am Creatinine 0.7 MG/DL 0.7-1.2 [...] CLEAR 06/05/2016 7:42pm 06/05/2016 7:49pm Urine Specific [place] <=1.005 L 1.015-1.025 06/05/2016 7:42pm 2016 7:49pm [...] 2016 7:49pm Name: MONTSE BECKMAN Unit #: [id number] : 1955 Sex: F Admit Date: 06/05/16 Loc / Svc: SRG Discharge Date: DIAGNOSTIC IMAGING REPORT Report #: [id number] [facility] [place] Indication: ITS.REASON: right upper quadrant [...] Arrival/Admit Date Discharge/Depart Date Attending Provider Departed Surgical Day Care [facility] 06/05/16 9:49pm 06/07/16 1: 25pm ARETHA GRAHAM FACS, MD Departed Emergency Room [facility] 06/05/16 12:58pm 06/05/16 2: 07pm ANG NARVAEZ MD
== END 2016-06-07 13:25 | disposition home or self-care (01) ==
LOC: ED 18:36 → UNDOADMOB 21:49 → EDHOLD 21:49 → SCU 21:49 → SRG 21:49 → EDHOLD 22:15 → SRG 22:15 → UNDODISOB 06-07 13:25 → SCU 06-07 13:25
PROVIDERS: ATTEND Surgery
DX: K80.01 Calculus of gallbladder with acute cholecystitis with obstruction (principal); K82.1 Hydrops of gallbladder; I10 Essential (primary) hypertension; E89.0 Postprocedural hypothyroidism; M19.90 Unspecified osteoarthritis, unspecified site; Z79.1 Long term (current) use of non-steroidal anti-inflammatories (NSAID); Z79.899 Other long term (current) drug therapy
CPT/HCPCS: 47562; S2900; 36415; 80053; 81003; 83690; 84484; 85025; 93005; 96374; 96375; 99218